=== PATIENT | male | born 1985 | race Caucasian/White ===

== ENCOUNTER 2016-10-03 08:57 | Emergency (ER) | payer MEDICAID ==
[~2016-10-03] VITALS: Ht 172.7 cm; Wt 129.3 kg
[2016-10-03 09:05] VITALS: BP 148/78
[2016-10-03] MEDS ORDERED: diphenhdrAMINE HCL 50 MG/1 ML VL IM ONE (10:00)
[2016-10-03] MEDS ORDERED: KETOROLAC TROMETH 60MG/2ML VIAL IM ONE (10:00)
== END 2016-10-03 11:07 | disposition home or self-care (01) ==
LOC: EDBD 08:57 → ER 08:57
DX: G89.29 Other chronic pain (principal); M54.5 Low back pain; M51.36 Other intervertebral disc degeneration, lumbar region; Z90.49 Acquired absence of other specified parts of digestive tract
CPT/HCPCS: 96372; 99284; J1200; J1885

== ENCOUNTER 2017-05-20 08:15 | Emergency (ER) | payer MEDICAID ==
[~2017-05-20] VITALS: Ht 172.7 cm; Wt 124.7 kg
[2017-05-20 09:13] LABS: Basophils # (auto) 0 uL; Eosinophils # (auto) 0.1 uL; Eosinophils % (auto) 0.7 % (0.0-7.0); Neutrophils # (auto) 11.8 uL; Platelet Count (auto) 334 10^3/uL (140-450); White Blood Cell 13.7 10^3/uL (4.4-10.8)
[2017-05-20 09:15] LABS: Basophils % (auto) 0.3 % (0.0-2.0); Hematocrit 52.6 % (41.0-53.0); Hemoglobin 18.1 g/dL (13.5-17.5); Lymphocytes # (auto) 1.3 uL; Lymphocytes % (auto) 9.2 % (10.0-50.0); Mean Corpuscular Hemoglobin 31.9 pg (28.0-32.0); Mean Corpuscular Hgb Conc. 34.4 g/dL (32.0-36.0); Mean Corpuscular Volume 92.6 fL (80.0-100.0); Monocytes # (auto) 0.5 uL; Monocytes % (auto) 3.9 % (0.0-12.0); Neutrophils % (auto) 85.9 % (37.0-80.0); Red Blood Cells 5.68 10^6/uL (4.5-5.90); Red Cell Distribution Width 13.4 % (11.8-14.3)
[2017-05-20 09:26] LABS: Alanine Aminotransferase 138 U/L (16-61); Albumin 4.2 g/dL (3.4-5.0); Anion Gap 10 (5-15); Aspartate Aminotransferase 56 U/L (15-37); BUN/Creatinine Ratio 15.9; Blood Urea Nitrogen 14 mg/dL (7-18); Calcium 9.5 mg/dL (8.5-10.1); Carbon Dioxide 23 mmol/L (21-32); Chloride 101 mmol/L (98-107); GFR African American 131 mL/min; GFR Non-African American 108 mL/min; Glucose 329 mg/dL (74-106); Potassium 4.2 mmol/L (3.5-5.1); Sodium 134 mmol/L (136-145)
[2017-05-20 09:31] LABS: Alkaline Phosphatase 141 U/L (45-117); Bilirubin, Total 0.6 mg/dL (0.2-1.0); Total Protein 8.1 g/dL (6.4-8.2)
[2017-05-20] MEDS ORDERED: SODIUM CHLORIDE 0.9% 1,000 ML IV ONE (10:29)
[2017-05-20] MEDS ORDERED: InsuLIN REG 1unit/0.01ml Soln (100units/ml) IV ONE (10:30)
[2017-05-20] MEDS ORDERED: PIPERACILLIN-TAZOB 3.375GM 50 ML IV ONE (10:30)
[2017-05-20 11:13] LABS: Urine Bacteria NONE SEEN /hpf (None Seen); Urine Blood Negative /uL (Negative); Urine Specific Gravity 1.046 (1.001-1.035); Urine WBC <1 /hpf (0 - 3)
[2017-05-20] MEDS ORDERED: ONDANSETRON HCL 4 MG/2 ML VIAL IV ONE (11:30)
[2017-05-20 12:37] VITALS: BP 118/49
== END 2017-05-20 13:02 | disposition home or self-care (01) ==
LOC: ER 08:15
DX: E86.0 Dehydration (principal); E11.65 Type 2 diabetes mellitus with hyperglycemia; J40 Bronchitis, not specified as acute or chronic; Z90.89 Acquired absence of other organs
CPT/HCPCS: 36415; 71046; 74176; 80053; 81001; 82962; 84484; 85025; 96365; 96375; 99285; J1815; J2405; J2543; J7030

== ENCOUNTER 2017-11-27 08:16 | Inpatient (IN) | payer MEDICAID ==
[~2017-11-27] VITALS: Ht 170.2 cm; Wt 97.4 kg
[2017-11-27 08:46] LABS: Hemoglobin 19.4 g/dL (13.5-17.5); Red Cell Distribution Width 13.5 % (11.8-14.3)
[2017-11-27 08:48] LABS: Hematocrit 55.9 % (41.0-53.0); Mean Corpuscular Hemoglobin 32.3 pg (28.0-32.0); Mean Corpuscular Hgb Conc. 34.8 g/dL (32.0-36.0); Mean Corpuscular Volume 92.9 fL (80.0-100.0); Platelet Count (auto) 365 10^3/uL (140-450); Red Blood Cells 6.02 10^6/uL (4.5-5.90); White Blood Cell 8.6 10^3/uL (4.4-10.8)
[2017-11-27 08:54] LABS: Basophils % (manual) 0 (0.0-2.0); Blast Cells 0; Eosinophils % (manual) 0 (0-7); Metamyelocytes % 0; Myelocytes % 0; Promyelocytes % 0; Reactive Lymphocytes 0
[2017-11-27 09:11] LABS: Albumin 4.1 g/dL (3.4-5.0); BUN/Creatinine Ratio 12.6; Bilirubin, Total 0.4 mg/dL (0.2-1.0); Calcium 8.9 mg/dL (8.5-10.1)
[2017-11-27 09:14] LABS: Urine Bacteria FEW /hpf (None Seen); Urine Blood TRACE /uL (Negative); Urine Specific Gravity 1.033 (1.001-1.035); Urine WBC 1 /hpf (0 - 3)
[2017-11-27 09:35] LABS: Potassium 5.2 mmol/L (3.5-5.1)
[2017-11-27 09:39] LABS: Band Neutrophils % (manual) 5; Lymphocytes % (manual) 24 (10.0-50.0)
[2017-11-27 09:40] LABS: Monocytes % (manual) 5 (0-12)
[2017-11-27] MEDS ORDERED: SODIUM CHLORIDE 0.9% 1,000 ML IVB ONE (12:40)
[2017-11-27] MEDS ORDERED: ONDANSETRON HCL 4 MG/2 ML VIAL IV ONE (12:45)
[2017-11-27 13:02] LABS: INR 0.88 (0.9-1.15); Partial Thromboplastin Time 27.8 sec (23.78-33.04); Prothrombin Time 9.5 sec (9.27-12.13)
[2017-11-27 13:17] LABS: Alcohol, Urine < 3.0 mg/dL (0-5); Amphetamine Screen, Urine NEGATIVE (NEGATIVE); Barbiturate Scree,Urine NEGATIVE (NEGATIVE); Benzodiazephine Screen, Urine NEGATIVE (NEGATIVE); Cannabinoid Screen, Urine NEGATIVE (NEGATIVE); Cocaine Screen, Urine NEGATIVE (NEGATIVE); Opiate Scree,Urine NEGATIVE (NEGATIVE); Phencyclidine Screen, Urine NEGATIVE (NEGATIVE)
[2017-11-27] MEDS ORDERED: DEXTROSE (50%) 50ML SYRG IV PRN (13:45)
[2017-11-27] MEDS ORDERED: PROMETHAZINE HCL 25 MG/ML 1ML IV PRN (13:45)
[2017-11-27] MEDS ORDERED: cefTRIAXone 1GM/10ml IVPUSH 10 ML IV ONE (13:45)
[2017-11-27] MEDS ORDERED: ACETAMINOPHEN 500 MG TAB PO PRN (13:45)
[2017-11-27] MEDS ORDERED: HYDROcodone-ACET 5/325MG TAB PO PRN (13:45)
[2017-11-27] MEDS ORDERED: TEMAZEPAM 15 MG CAP PO PRN (13:45)
[2017-11-27] MEDS ORDERED: NITROGLYCERIN 0.4 MG SL TAB SL PRN (13:45)
[2017-11-27] MEDS ORDERED: MORPHINE SULF INJ 2 MG/ML SYRINGE 1ML IV PRN ×2 (13:45)
[2017-11-27] MEDS ORDERED: LORazepam 0.5 MG TAB PO PRN (13:45)
[2017-11-27] MEDS: SODIUM CHLORIDE 0.9% 1,000 ML IV SCH ×2 (14:34→22:27)
[2017-11-27] MEDS: metroNIDAZOLE 500MG/100ML 100 ML IV SCH ×2 (14:34→20:35)
[2017-11-27] MEDS: FAMOTIDINE (10MG/ML) 2ML VL IV SCH (14:38)
[2017-11-27] MEDS: ACCU-CHEK COMFORT CURVE STRIP VI SCH ×2 (15:27→20:00)
[2017-11-27] MEDS: InsuLIN REG 1unit/0.01ml Soln (100units/ml) SC SCH ×2 (15:27→20:39)
[2017-11-27 22:00] VITALS: BP 130/78
[2017-11-28] MEDS: ACCU-CHEK COMFORT CURVE STRIP VI SCH ×6 (00:02→20:13)
[2017-11-28] MEDS: InsuLIN REG 1unit/0.01ml Soln (100units/ml) SC SCH ×6 (00:07→20:22)
[2017-11-28] MEDS: FAMOTIDINE (10MG/ML) 2ML VL IV SCH ×2 (03:41→13:37)
[2017-11-28] MEDS: metroNIDAZOLE 500MG/100ML 100 ML IV SCH ×4 (03:41→19:56)
[2017-11-28] MEDS: SODIUM CHLORIDE 0.9% 1,000 ML IV SCH ×3 (05:08→22:25)
[2017-11-28 05:18] VITALS: BP 123/68
[2017-11-28 06:47] LABS: Basophils # (auto) 0 uL; Basophils % (auto) 0.6 % (0.0-2.0); Eosinophils # (auto) 0.1 uL; Eosinophils % (auto) 1.7 % (0.0-7.0); Hematocrit 48.3 % (41.0-53.0); Lymphocytes # (auto) 1.3 uL; Lymphocytes % (auto) 21.7 % (10.0-50.0); Mean Corpuscular Hemoglobin 32.5 pg (28.0-32.0); Mean Corpuscular Hgb Conc. 35.1 g/dL (32.0-36.0); Mean Corpuscular Volume 92.6 fL (80.0-100.0); Monocytes # (auto) 0.7 uL; Monocytes % (auto) 12.1 % (0.0-12.0); Neutrophils # (auto) 3.7 uL; Neutrophils % (auto) 63.9 % (37.0-80.0); Nucleated Red Blood Cells % 0.1 %; Platelet Count (auto) 272 10^3/uL (140-450); Red Blood Cells 5.22 10^6/uL (4.5-5.90); Red Cell Distribution Width 13.4 % (11.8-14.3); White Blood Cell 5.8 10^3/uL (4.4-10.8)
[2017-11-28 06:56] LABS: Albumin 3.3 g/dL (3.4-5.0); Calcium 8.4 mg/dL (8.5-10.1); Potassium 3.9 mmol/L (3.5-5.1)
[2017-11-28 06:58] LABS: BUN/Creatinine Ratio 12.2
[2017-11-28 07:01] LABS: Bilirubin, Total 0.5 mg/dL (0.2-1.0)
[2017-11-28 07:07] LABS: Cholesterol 245 mg/dL (< 200); HDL Cholesterol 25 mg/dL (40-59); LDL Cholesterol 157 mg/dL (< 100); Triglycerides 343 mg/dL (< 150)
[2017-11-28 09:00] VITALS: BP 120/73
[2017-11-28] MEDS: cefTRIAXone 1GM/10ml IVPUSH 10 ML IV SCH (09:00)
[2017-11-28 13:00] VITALS: BP 125/83
[2017-11-28 17:00] VITALS: BP 140/77
[2017-11-28 19:04] LABS: BUN/Creatinine Ratio 10.7; Calcium 8.2 mg/dL (8.5-10.1); Potassium 3.8 mmol/L (3.5-5.1)
[2017-11-28 22:00] VITALS: BP 127/89
[2017-11-28] MEDS ORDERED: INSULIN LANTUS (GLARGINE) 1 /0.01ml (100units/ml) SC SCH ×2 (22:00)
[2017-11-29] MEDS: ACCU-CHEK COMFORT CURVE STRIP VI SCH ×4 (00:29→12:00)
[2017-11-29] MEDS: InsuLIN REG 1unit/0.01ml Soln (100units/ml) SC SCH ×4 (00:33→12:00)
[2017-11-29] MEDS: FAMOTIDINE (10MG/ML) 2ML VL IV SCH ×2 (00:36→14:15)
[2017-11-29] MEDS: metroNIDAZOLE 500MG/100ML 100 ML IV SCH ×3 (01:57→14:15)
[2017-11-29] MEDS: SODIUM CHLORIDE 0.9% 1,000 ML IV SCH ×2 (04:15→12:27)
[2017-11-29 05:00] VITALS: BP 139/81
[2017-11-29 06:32] LABS: Calcium 8.2 mg/dL (8.5-10.1); Potassium 3.7 mmol/L (3.5-5.1)
[2017-11-29 06:35] LABS: Albumin 3.1 g/dL (3.4-5.0); BUN/Creatinine Ratio 9.2
[2017-11-29 06:38] LABS: Bilirubin, Total 0.5 mg/dL (0.2-1.0); Total Protein 6.6 g/dL (6.4-8.2)
[2017-11-29] MEDS: cefTRIAXone 1GM/10ml IVPUSH 10 ML IV SCH (09:00)
[2017-11-29 09:31] VITALS: BP 146/95
[2017-11-29 12:30] VITALS: BP 156/92
[2017-11-29] MEDS ORDERED: ASPI81CH43 PO (14:28)
[2017-11-29] MEDS ORDERED: ATOR20TA50 PO (14:28)
[2017-11-29] MEDS ORDERED: LOSARTAN POTASSIUM 25 MG TAB PO ONE (14:30)
== END 2017-11-29 16:00 | disposition home or self-care (01) | DRG 420 ==
LOC: ER 08:16 → TELE 08:17 → TELE-WESTW 15:52
PROVIDERS: ADMIT Internal Medicine; ATTEND Internal Medicine
DX: E11.10 Type 2 diabetes mellitus with ketoacidosis without coma (principal); E66.01 Morbid (severe) obesity due to excess calories; E87.5 Hyperkalemia; D75.1 Secondary polycythemia; K76.0 Fatty (change of) liver, not elsewhere classified; F20.9 Schizophrenia, unspecified; K52.9 Noninfective gastroenteritis and colitis, unspecified; E86.0 Dehydration; E87.1 Hypo-osmolality and hyponatremia; E78.1 Pure hyperglyceridemia; F31.9 Bipolar disorder, unspecified; E78.5 Hyperlipidemia, unspecified; F41.9 Anxiety disorder, unspecified; I10 Essential (primary) hypertension; Z82.49 Family history of ischemic heart disease and other diseases of the circulatory system; Z68.33 Body mass index [BMI] 33.0-33.9, adult; Z90.49 Acquired absence of other specified parts of digestive tract
CPT/HCPCS: 36415; 71045; 74176; 76705; 80048; 80053; 80061; 80307; 81001; 82150; 82962; 83036; 83690; 83735; 85007; 85025; 85027; 85610; 85652; 85730; 86141; 87086; 87493; 93005; 94761; 96361; 96374; 96375; J0696; J1815; J2405; J3490

== ENCOUNTER 2021-10-31 06:39 | Emergency (ER) | payer MEDICAID ==
[~2021-10-31] VITALS: Ht 170.2 cm; Wt 126.3 kg
[~2021-10-31 06:39] MED LIST: ASPI81CH43 PO; ATOR20TA50 PO
[2021-10-31 07:15] VITALS: BP 148/82
[2021-10-31 07:55] LABS: Basophils # (auto) 0 10 ^3/uL (0-0.2); Basophils % (auto) 0.4 % (0.0-2.0); Eosinophils # (auto) 0 10 ^3/uL (0-0.8); Eosinophils % (auto) 0.3 % (0.0-7.0); Hematocrit 47.6 % (41.0-53.0); Hemoglobin 15.8 g/dL (13.5-17.5); Lymphocytes # (auto) 0.8 10 ^3/uL (0.4-5.4); Lymphocytes % (auto) 15.7 % (10.0-50.0); Mean Corpuscular Hemoglobin 29.8 pg (28.0-32.0); Mean Corpuscular Hgb Conc. 33.1 g/dL (32.0-36.0); Mean Corpuscular Volume 90.1 fL (80.0-100.0); Monocytes # (auto) 0.4 10 ^3/uL (0-1.3); Monocytes % (auto) 7.4 % (0.0-12.0); Neutrophils # (auto) 3.9 10 ^3/uL (1.6-8.6); Neutrophils % (auto) 76.2 % (37.0-80.0); Nucleated Red Blood Cells % 0.1 %; Red Blood Cells 5.28 10^6/uL (4.5-5.90); White Blood Cell 5.1 10^3/uL (4.4-10.8)
[2021-10-31 08:10] LABS: Albumin 3.6 g/dL (3.4-5.0); BUN/Creatinine Ratio 14.5; Calcium 8.6 mg/dL (8.5-10.1); Potassium 4.5 mmol/L (3.5-5.1)
[2021-10-31 08:19] LABS: Bilirubin, Total 0.8 mg/dL (0.2-1.0); Total Protein 7.3 g/dL (6.4-8.2)
== END 2021-10-31 10:25 | disposition home or self-care (01) ==
LOC: EDBD 06:39 → ER 06:39
DX: R10.11 Right upper quadrant pain (principal); R74.8 Abnormal levels of other serum enzymes; I10 Essential (primary) hypertension; E11.9 Type 2 diabetes mellitus without complications; Z90.49 Acquired absence of other specified parts of digestive tract; Z79.82 Long term (current) use of aspirin; Z79.899 Other long term (current) drug therapy
CPT/HCPCS: 36415; 71045; 74176; 80053; 85025

== ENCOUNTER 2021-11-02 13:12 | Emergency (ER) | payer MEDICAID ==
[~2021-11-02] VITALS: Ht 170.2 cm; Wt 55.0 kg
[2021-11-02 14:42] LABS: Basophils # (auto) 0 10 ^3/uL (0-0.2); Eosinophils # (auto) 0 10 ^3/uL (0-0.8); Eosinophils % (auto) 0.2 % (0.0-7.0); Neutrophils # (auto) 8.2 10 ^3/uL (1.6-8.6); Nucleated Red Blood Cells % 0.1 %
[2021-11-02 14:45] LABS: Basophils % (auto) 0.3 % (0.0-2.0); Hematocrit 53.7 % (41.0-53.0); Hemoglobin 17.6 g/dL (13.5-17.5); Lymphocytes # (auto) 1.4 10 ^3/uL (0.4-5.4); Lymphocytes % (auto) 13.2 % (10.0-50.0); Mean Corpuscular Hemoglobin 29.8 pg (28.0-32.0); Mean Corpuscular Hgb Conc. 32.7 g/dL (32.0-36.0); Mean Corpuscular Volume 91.1 fL (80.0-100.0); Monocytes # (auto) 1.2 10 ^3/uL (0-1.3); Monocytes % (auto) 11.4 % (0.0-12.0); Neutrophils % (auto) 74.9 % (37.0-80.0); Red Blood Cells 5.89 10^6/uL (4.5-5.90); Red Cell Distribution Width 13.8 % (11.8-14.3)
[2021-11-02] MEDS ORDERED: SODIUM CHLORIDE 0.9% 1,000 ML IV ONE (14:45)
[2021-11-02] MEDS ORDERED: cefTRIAXone 1GM/50ML D5W 50 ML IV ONE (14:45)
[2021-11-02] MEDS ORDERED: metroNIDAZOLE 500MG/100ML 100 ML IV ONE (14:45)
[2021-11-02] MEDS ORDERED: SODIUM CHLORIDE 0.9% 1,000 ML IVB ONE (14:45)
[2021-11-02 15:00] LABS: Albumin 3.6 g/dL (3.4-5.0); Calcium 9.4 mg/dL (8.5-10.1); Potassium 4.3 mmol/L (3.5-5.1)
[2021-11-02 15:10] LABS: BUN/Creatinine Ratio 9.8; Bilirubin, Total 2.6 mg/dL (0.2-1.0); Total Protein 8.5 g/dL (6.4-8.2)
[2021-11-02 19:03] VITALS: BP 128/82
== END 2021-11-02 19:13 | disposition home or self-care (01) ==
LOC: EDBD 13:12 → ER 13:12
DX: E11.65 Type 2 diabetes mellitus with hyperglycemia (principal); R74.8 Abnormal levels of other serum enzymes; R10.9 Unspecified abdominal pain; I10 Essential (primary) hypertension
CPT/HCPCS: 36415; 76705; 80053; 83605; 83690; 83880; 85025; 87040; 96365; 96366; 96367; 99284; J0696; J3490; J7030

== ENCOUNTER 2023-02-25 10:38 | Emergency (ER) | payer MEDICAID ==
[~2023-02-25] VITALS: Ht 170.2 cm; Wt 124.2 kg
[2023-02-25] MEDS ORDERED: InsuLIN REG 1unit/0.01ml Soln (100units/ml) IV ONE (11:00)
[2023-02-25] MEDS ORDERED: SODIUM CHLORIDE 0.9% 1,000 ML IV ONE (11:00)
[2023-02-25 11:12] LABS: Basophils # (auto) 0.1 10 ^3/uL (0-0.2); Basophils % (auto) 0.8 % (0.0-2.0); Eosinophils # (auto) 0.1 10 ^3/uL (0-0.8); Hematocrit 46.1 % (41.0-53.0); Hemoglobin 15.5 g/dL (13.5-17.5); Lymphocytes # (auto) 2.3 10 ^3/uL (0.4-5.4); Lymphocytes % (auto) 32.3 % (10.0-50.0); Mean Corpuscular Hemoglobin 31.4 pg (28.0-32.0); Mean Corpuscular Hgb Conc. 33.7 g/dL (32.0-36.0); Mean Corpuscular Volume 93.1 fL (80.0-100.0); Monocytes # (auto) 0.5 10 ^3/uL (0-1.3); Monocytes % (auto) 6.5 % (0.0-12.0); Neutrophils # (auto) 4.2 10 ^3/uL (1.6-8.6); Neutrophils % (auto) 59.4 % (37.0-80.0); Nucleated Red Blood Cells % 0.2 %; Red Blood Cells 4.95 10^6/uL (4.5-5.90); Red Cell Distribution Width 13.5 % (11.8-14.3)
[2023-02-25 11:22] LABS: Alanine Aminotransferase 61 U/L (7-40); Albumin 2.8 g/dL (3.2-4.8); Alkaline Phosphatase 60 U/L (46-116); Anion Gap 11 (5-15); Aspartate Aminotransferase 19 U/L (13-40); BUN/Creatinine Ratio 11.8 (10.0-20.0); Blood Urea Nitrogen 6 mg/dL (9-23); Calcium 6.3 mg/dL (8.5-10.1); Carbon Dioxide 21 mmol/L (20-30); Chloride 100 mmol/L (98-107); Glucose 338 mg/dL (74-106); Potassium 4.5 mmol/L (3.5-5.1); Sodium 132 mmol/L (136-145)
[2023-02-25 11:23] LABS: Bilirubin, Total 0.2 mg/dL (0.2-1.0); Total Protein 4.4 g/dL (5.7-8.2)
[2023-02-25 11:48] LABS: Urine Bacteria NONE SEEN /hpf (None Seen); Urine Blood Negative /uL (Negative); Urine Clarity Clear (Clear); Urine Color Colorless (Yellow); Urine Protein, UAD Negative (Negative); Urine Specific Gravity 1.026 (1.001-1.035); Urine Urobilinogen Normal (Negative); Urine WBC <1 /hpf (0 - 3)
[2023-02-25 13:20] VITALS: BP 142/81; PULSE 103; RESP 19; TEMP 98.6; O2SAT 95
== END 2023-02-25 15:04 | disposition home or self-care (01) ==
LOC: ER 10:38
DX: E11.65 Type 2 diabetes mellitus with hyperglycemia (principal); I10 Essential (primary) hypertension; E78.5 Hyperlipidemia, unspecified; F17.210 Nicotine dependence, cigarettes, uncomplicated; Z90.49 Acquired absence of other specified parts of digestive tract; Z79.82 Long term (current) use of aspirin; Z79.899 Other long term (current) drug therapy
CPT/HCPCS: 36415; 80053; 81001; 82962; 85025; 96361; 96374; 99283; J1815; J7030

== ENCOUNTER 2023-08-29 08:01 | Inpatient (IN) | payer MEDICAID ==
[~2023-08-29] VITALS: Ht 170.2 cm; Wt 119.4 kg
[2023-08-29 08:38] LABS: Basophils # (auto) 0 10 ^3/uL (0-0.2); Basophils % (auto) 0.1 % (0.0-2.0); Eosinophils # (auto) 0.1 10 ^3/uL (0-0.8); Eosinophils % (auto) 0.6 % (0.0-7.0); Hematocrit 50.9 % (41.0-53.0); Hemoglobin 17.1 g/dL (13.5-17.5); Lymphocytes # (auto) 0.7 10 ^3/uL (0.4-5.4); Lymphocytes % (auto) 5.9 % (10.0-50.0); Mean Corpuscular Hemoglobin 31.5 pg (28.0-32.0); Mean Corpuscular Hgb Conc. 33.6 g/dL (32.0-36.0); Mean Corpuscular Volume 93.8 fL (80.0-100.0); Monocytes # (auto) 0.8 10 ^3/uL (0-1.3); Monocytes % (auto) 7.3 % (0.0-12.0); Neutrophils # (auto) 9.6 10 ^3/uL (1.6-8.6); Neutrophils % (auto) 86.1 % (37.0-80.0); Red Blood Cells 5.42 10^6/uL (4.5-5.90); Red Cell Distribution Width 13.6 % (11.8-14.3); White Blood Cell 11.1 10^3/uL (4.4-10.8)
[2023-08-29 08:54] LABS: Urine Bacteria None Seen /hpf (None Seen)
[2023-08-29 09:00] LABS: Alanine Aminotransferase 97 U/L (7-40); Albumin 4.4 g/dL (3.2-4.8); Alkaline Phosphatase 93 U/L (46-116); Anion Gap 5 (5-15); Aspartate Aminotransferase 32 U/L (13-40); BUN/Creatinine Ratio 8.3 (10.0-20.0); Bilirubin, Total 0.7 mg/dL (0.2-1.0); Blood Urea Nitrogen 7 mg/dL (9-23); Calcium 9.8 mg/dL (8.7-10.4); Carbon Dioxide 25 mmol/L (20-30); Chloride 105 mmol/L (98-107); Glucose 332 mg/dL (74-106); Lipase 31 U/L (12-53); Potassium 4.6 mmol/L (3.5-5.1); Sodium 135 mmol/L (136-145); Total Protein 7.1 g/dL (5.7-8.2)
[2023-08-29] MEDS: SODIUM CHLORIDE 0.9% 1,000 ML IV ONE ×2 (09:10→09:40)
[2023-08-29 09:19] LABS: Urine Blood Negative /uL (Negative); Urine Clarity Clear (Clear); Urine Color Light-Yellow (Yellow); Urine Hyaline Cast MANY /lpf (0 - 2); Urine Protein, UAD Negative (Negative); Urine Specific Gravity 1.047 (1.001-1.035); Urine Urobilinogen Normal (Negative); Urine WBC 1 /hpf (0 - 3)
[2023-08-29] MEDS: InsuLIN REG 1unit/0.01ml Soln (100units/ml) IV ONE (10:10)
[2023-08-29] MEDS: LACTATED RINGER'S 1,000 ML IV ONE (11:00)
[2023-08-29] MEDS ORDERED: metroNIDAZOLE 500MG/100ML 100 ML IV SCH ×2 (11:00→11:15)
[2023-08-29] MEDS ORDERED: DOCUSATE SOD 100 MG CAP PO PRN (11:00)
[2023-08-29] MEDS ORDERED: ONDANSETRON HCL 4 MG/2 ML VIAL IV PRN (11:00)
[2023-08-29] MEDS ORDERED: HYDROmorphone HCL 2 MG/ML VL/or syr IV PRN (11:00)
[2023-08-29] MEDS ORDERED: ACETAMINOPHEN 325 MG TAB PO PRN (11:00)
[2023-08-29] MEDS ORDERED: DEXTROSE (50%) 50ML SYRG IV PRN (11:00)
[2023-08-29 11:30] VITALS: PULSE 81; RESP 16; O2SAT 92
[2023-08-29] MEDS: cefTRIAXone 1GM/50ML D5W 50 ML IV SCH (11:31)
[2023-08-29] MEDS: ACCU-CHEK COMFORT CURVE STRIP VI SCH (13:30)
[2023-08-29] MEDS: metroNIDAZOLE 500 MG TAB PO SCH (14:00)
[2023-08-29] MEDS: InsuLIN REG 1unit/0.01ml Soln (100units/ml) SC SCH (14:00)
[2023-08-29] MEDS: SODIUM CHLOR 0.9% PF (SALINE LOCK) 10ML VIAL/SYR IV SCH (14:06)
[2023-08-29 14:38] VITALS: BP 108/68; PULSE 106; RESP 18; TEMP 98; O2SAT 98
[2023-08-29 14:39] VITALS: BP 108/68; PULSE 106; RESP 18; TEMP 98; O2SAT 98
[2023-08-29 17:00] VITALS: BP 110/63; PULSE 116; RESP 18; TEMP 98.5; O2SAT 95
[2023-08-29 20:00] VITALS: PULSE 107; RESP 19; O2SAT 94
[2023-08-29 21:32] VITALS: BP 108/61; PULSE 101; RESP 19; TEMP 98.1; O2SAT 94
[2023-08-30] VITALS (7 sets, daily range): BP systolic 114–144; BP diastolic 61–87; PULSE 75–98; RESP 17–20; TEMP 97.5–98.3; O2SAT 92–96
[2023-08-30] MEDS: ATORVASTATIN 20 MG TAB PO SCH (09:43)
[2023-08-30] MEDS: ASPirin 81 mg TAB PO SCH (09:43)
[2023-08-31 01:00] VITALS: BP 114/84; PULSE 98; RESP 20; TEMP 98; O2SAT 94
[2023-08-31 05:00] VITALS: BP 153/92; PULSE 93; RESP 20; TEMP 98; O2SAT 97
[2023-08-31 09:00] VITALS: BP 111/68; PULSE 87; RESP 20; TEMP 98.3; O2SAT 99
[2023-08-31 13:26] VITALS: BP 147/78; PULSE 90; RESP 21; TEMP 98.2; O2SAT 97
[2023-08-31 20:00] VITALS: PULSE 81; RESP 14; O2SAT 96
[2023-08-31 21:00] VITALS: BP 126/76; PULSE 81; RESP 14; TEMP 98.7; O2SAT 96
[2023-09-01] VITALS (7 sets, daily range): BP systolic 82–153; BP diastolic 78–89; PULSE 77–94; RESP 16–20; TEMP 36.4; O2SAT 94–98
[2023-09-01 07:07] LABS: Chloride 107 mmol/L (98-107); Potassium 3.9 mmol/L (3.5-5.1); Sodium 138 mmol/L (136-145)
[2023-09-01 07:08] LABS: Anion Gap 6 (5-15); Carbon Dioxide 25 mmol/L (20-30)
[2023-09-01 07:10] LABS: Hematocrit 43.2 % (41.0-53.0); Hemoglobin 14.9 g/dL (13.5-17.5); Mean Corpuscular Hemoglobin 32.2 pg (28.0-32.0); Mean Corpuscular Hgb Conc. 34.5 g/dL (32.0-36.0); Mean Corpuscular Volume 93.2 fL (80.0-100.0); Red Blood Cells 4.64 10^6/uL (4.5-5.90); Red Cell Distribution Width 13.1 % (11.8-14.3); White Blood Cell 4.5 10^3/uL (4.4-10.8)
[2023-09-01 07:13] LABS: BUN/Creatinine Ratio 6.7 (10.0-20.0); Blood Urea Nitrogen 5 mg/dL (9-23)
[2023-09-01 07:14] LABS: Basophils % (manual) 0 (0.0-2.0); Blast Cells 0; Metamyelocytes % 0; Myelocytes % 0; Promyelocytes % 0; Reactive Lymphocytes 0
[2023-09-01 07:23] LABS: Glucose 213 mg/dL (74-106)
[2023-09-01 08:20] LABS: Band Neutrophils % (manual) 1; Eosinophils % (manual) 2 (0-7); Lymphocytes % (manual) 35 (10.0-50.0); Monocytes % (manual) 14 (0-12)
[2023-09-01 08:21] LABS: Platelet Estimate Adequate; RBC Morphology Normal
[2023-09-01] MEDS ORDERED: LEVO500T91 PO (10:20)
[2023-09-01] MEDS ORDERED: METR-344 PO (10:20)
[2023-09-01] MEDS: HYDROcodone-ACET 5/325MG TAB PO PRN (14:43)
== END 2023-09-01 17:38 | disposition home or self-care (01) | DRG 249 ==
LOC: ER 08:01 → EDUNIT# 08:01 → EDBD 08:01 → ER 10:59 → OVERFLOW 10:59 → EAST 14:26
PROVIDERS: ADMIT Internal Medicine; ATTEND Family Medicine
DX: K52.9 Noninfective gastroenteritis and colitis, unspecified (principal); K76.0 Fatty (change of) liver, not elsewhere classified; E11.65 Type 2 diabetes mellitus with hyperglycemia; I10 Essential (primary) hypertension; F17.210 Nicotine dependence, cigarettes, uncomplicated; Z82.49 Family history of ischemic heart disease and other diseases of the circulatory system; Z79.4 Long term (current) use of insulin; Z79.899 Other long term (current) drug therapy
CPT/HCPCS: 36415; 74176; 80048; 80053; 81001; 82962; 83690; 85007; 85025; 85027; 85048; 87045; 87427; 87493; 96365; G0378; J1815

== ENCOUNTER 2023-11-15 16:02 | Emergency (ER) | payer MEDICAID ==
[~2023-11-15] VITALS: Ht 172.7 cm; Wt 120.0 kg
[~2023-11-15 16:02] MED LIST changes: +LEVO500T91 PO; +METR-344 PO
[2023-11-15 17:16] LABS: Basophils # (auto) 0 10 ^3/uL (0-0.2); Basophils % (auto) 0.6 % (0.0-2.0); Eosinophils # (auto) 0.1 10 ^3/uL (0-0.8); Hematocrit 47.5 % (41.0-53.0); Hemoglobin 16.4 g/dL (13.5-17.5); Lymphocytes % (auto) 25.3 % (10.0-50.0); Mean Corpuscular Hemoglobin 32.1 pg (28.0-32.0); Mean Corpuscular Hgb Conc. 34.6 g/dL (32.0-36.0); Mean Corpuscular Volume 92.8 fL (80.0-100.0); Monocytes # (auto) 0.8 10 ^3/uL (0-1.3); Monocytes % (auto) 9.7 % (0.0-12.0); Neutrophils % (auto) 63.4 % (37.0-80.0); Red Blood Cells 5.12 10^6/uL (4.5-5.90); Red Cell Distribution Width 13.3 % (11.8-14.3); White Blood Cell 7.9 10^3/uL (4.4-10.8)
[2023-11-15] MEDS: InsuLIN REG 1unit/0.01ml Soln (100units/ml) IV ONE (17:29)
[2023-11-15 17:30] LABS: Chloride 101 mmol/L (98-107); Potassium 4.2 mmol/L (3.5-5.1); Sodium 134 mmol/L (136-145)
[2023-11-15] MEDS: SODIUM CHLORIDE 0.9% 1,000 ML IV ONE ×2 (17:30→18:06)
[2023-11-15 17:31] LABS: Anion Gap 7 (5-15); Calcium 9.5 mg/dL (8.7-10.4); Carbon Dioxide 26 mmol/L (20-30)
[2023-11-15 17:36] LABS: BUN/Creatinine Ratio 16.9 (10.0-20.0); Blood Urea Nitrogen 15 mg/dL (9-23); Glucose 345 mg/dL (74-106)
[2023-11-15 19:28] VITALS: BP 148/84; PULSE 99; RESP 19; TEMP 98.1; O2SAT 96
== END 2023-11-15 19:29 | disposition home or self-care (01) ==
LOC: ER 16:02 → EDBD 16:02 → ER 19:29
DX: E11.65 Type 2 diabetes mellitus with hyperglycemia (principal); I10 Essential (primary) hypertension; E78.5 Hyperlipidemia, unspecified; F17.210 Nicotine dependence, cigarettes, uncomplicated; F15.90 Other stimulant use, unspecified, uncomplicated; Z98.890 Other specified postprocedural states; Z79.899 Other long term (current) drug therapy
CPT/HCPCS: 36415; 80048; 85025; 96361; 96374; 99283; J1815; J7030

== ENCOUNTER 2024-04-28 17:02 | Inpatient (IN) | payer MEDICAID ==
[~2024-04-28] VITALS: Ht 170.2 cm; Wt 121.4 kg
[2024-04-28] MEDS ORDERED: DEXTROSE (50%) 50ML SYRG IV PRN ×2 (17:15→18:15)
[2024-04-28] MEDS: ACCU-CHEK COMFORT CURVE STRIP VI SCH ×2 (18:00→19:20)
--- NOTE | 2024-04-28 18:04 | ED.PDOC ---
History of Present Illness HPI Comments Anthony Nguyễn is a 38-year-old male patient who presents to the ED with complaint of generalized weakness, diarrhea, polyuria, confusion and dizziness which started today, associated with hyperglycemia (350). Patient says he is noncompliant with medication, he just to easily whenever patient feels symptomatic, he should be receiving insulin but has not been taking insulin for approximately one year. He also reports recent use of methamphetamine. Denies fever, chills, palpitation, syncope, chest pain, dyspnea, nausea, vomiting, bleeding, sick contacts, recent travel and other motor or sensory deficits. Past medical history: Hypertension, diabetes, noncompliance Surgical history: Appendectomy 20 years ago Family history: Father has hypertension Social history: Lives in feeling with mother. He is an active smoker (only smokes six cigarettes per day for the past year) he smokes marijuana occasionally. Ethanol abuse (patient did not quantify, but he does drink hard liquor, he binge drinks not every day of the week). Current methamphetamine abuse. He tried stopping polysubstance abuse multiple occasions, but always has recurrence. Allergies: Enema dandruff Home medication: Metformin occasionally, insulin (he stopped taking for approximately one year), losartan Chief Complaint: General Weakness Time Seen by MD: 17:06 Primary Care Provider: Rodger Allergies: Coded Allergies: No Known Drug Allergy (Unverified Allergy, Unknown, 08/29/23) Home Meds Active Scripts Metronidazole (Flagyl) 500 Mg Tab, 1 TAB PO TID, #30 TAB Prov:MARI SOLANO MD 09/01/23 Levofloxacin Hemihydrate (LEVAQUIN 500 MG) 500 Mg Tab, 1 TAB PO DAILY, #7 TAB Prov:MARI SOLANO MD 09/01/23 Aspirin (Asa) 81 Mg Ch, 81 MG PO DAILY, #100 Prov:KAIN CHRISTIANSON MD 11/29/17 Atorvastatin Calcium (ATORVASTATIN CALCIUM) 20 Mg Tab, 1 TAB PO DAILY, #90 TAB 1 Refill Prov:KAIN CHRISTIANSON MD 11/29/17 Mode of Arrival: EMS Past Medical History PAST MEDICAL HISTORY: DM, High Lipids, HTN, Thyroid Surgical History: Appendectomy Family History Family History: Family hx of HTN Social History Smoker: Cigarettes Alcohol: Occasionally Drugs: Marijuana, Methamphetamine Lives In: Home Physical Exam General Appearance: No Apparent Distress, Normal HEENT: Normal ENT Inspection, Pharynx Normal, TMs Normal Neck: Full Range of Motion, Non-Tender, Normal, Normal Inspection Respiratory: Chest Non-Tender, Lungs Clear, No Accessory Muscle Use, No Respiratory Distress, Normal Breath Sounds Cardiovascular: No Edema, No JVD, No Murmur, No Gallop, Normal Peripheral Pulses, Regular Rate/Rhythm Breast Exam: Deferred Gastrointestinal: No Organomegaly, Non Tender, No Pulsatile Mass, Normal Bowel Sounds, Soft Genitalia: Deferred Pelvic: Deferred Rectal: Deferred Extremities: No calf tenderness, Normal capillary refill, Normal inspection, Normal range of motion, Non-tender, No pedal edema Neurologic: Alert, nurse orthopedic II-XII nml as Tested, No Motor Deficits, Normal Affect, Normal Mood, No Sensory Deficits Cerebellar Function: Normal Reflexes: Normal Skin: Dry, Normal Color, Warm Lymphatic: No Adenopathy Was a procedure done? Was a procedure done?: No Differential Dx Considerations may include: Simple hyperglycemia, DKA, polysubstance abuse, CVA, infection X-Ray, Labs, Meds, VS Vital Signs Date Time Temp Pulse Resp B/P (MAP) Pulse Ox O2 Delivery O2 Flow Rate FiO2 04/28/24 17:54 117 17 95 Room Air 04/28/24 17:54 97.6 117 17 143/92 (109) 95 97.6 04/28/24 17:31 97.7 115 14 122/78 (93) 94 Lab Test 04/28/24 17:59 04/28/24 17:53 Range/Units White Blood Count 11.3 H 4.4-10.8 10^3/uL Red Blood Count 5.11 4.5-5.90 10^6/uL Hemoglobin 16.3 13.5-17.5 g/dL Hematocrit 46.9 41.0-53.0 % Mean Corpuscular Volume 91.9 80.0-100.0 fL Mean Corpuscular Hemoglobin 31.9 28.0-32.0 pg Mean Corpuscular Hemoglobin Concent 34.6 32.0-36.0 g/dL Red Cell Distribution Width 12.9 11.8-14.3 % Platelet Count 288 140-450 10^3/uL Mean Platelet Volume 7.9 6.9-10.8 fL Neutrophils (%) (Auto) 59.7 37.0-80.0 % Lymphocytes (%) (Auto) 31.1 10.0-50.0 % Monocytes (%) (Auto) 6.6 0.0-12.0 % Eosinophils (%) (Auto) 1.6 0.0-7.0 % Basophils (%) (Auto) 1.0 0.0-2.0 % Neutrophils # (Auto) 6.8 1.6-8.6 10 ^3/uL Lymphocytes # (Auto) 3.5 0.4-5.4 10 ^3/uL Monocytes # (Auto) 0.7 0-1.3 10 ^3/uL Eosinophils # (Auto) 0.2 0-0.8 10 ^3/uL Basophils # (Auto) 0.1 0-0.2 10 ^3/uL Nucleated Red Blood Cells 0.0 % Prothrombin Time 9.7 9.3-11.8 sec Prothrombin Time INR 0.91 0.9-1.15 Activated Partial Thromboplast Time 25.0 24.5-34.5 SEC Sodium Level 133 L 136-145 mmol/L Potassium Level 4.6 3.5-5.1 mmol/L Chloride Level 103 98-107 mmol/L Carbon Dioxide Level 22 20-31 mmol/L Anion Gap 8 5-15 Blood Urea Nitrogen 13 9-23 mg/dL Creatinine 0.81 0.700-1.30 mg/dL Glomerular Filtration Rate Calc 116 >90 mL/min BUN/Creatinine Ratio 16.0 10.0-20.0 Serum Glucose 387 H 74-106 mg/dL Lactic Acid Level 2.1 *H 0.4-2.0 mmol/L Calcium Level 9.5 8.7-10.4 mg/dL Phosphorus Level 4.0 2.4-5.1 mg/dL Magnesium Level 1.7 1.6-2.6 mg/dL Total Bilirubin < 0.2 L 0.2-1.0 mg/dL Aspartate Amino Transferase (AST) 27 13-40 U/L Alanine Aminotransferase (ALT) 67 H 7-40 U/L Alkaline Phosphatase 95 46-116 U/L Ammonia 26 11-32 umol/L Total Protein 6.6 5.7-8.2 g/dL Albumin 4.6 3.2-4.8 g/dL Thyroid Stimulating Hormone (TSH) 2.70 0.55-4.78 uIU/mL POC Glucose 361 H 70-106 mg/dl Current Medications Medications (Trade) Dose Ordered Sig/Abhishek Route Start Time Stop Time Status Last Admin Sodium Chloride 1,000 ml @ 1,000 mls/hr Q1H ONCE IV 04/28/24 18:00 04/28/24 18:59 DC 04/28/24 18:13 Diagnostic Test (Pha) (Accu-Chek Comfort Curve T) 1 strip IQ4HR 04/28/24 18:08 04/28/24 19:20 Insulin Human Regular (InsuLIN R) IQ4HR SC 04/28/24 18:08 04/28/24 19:25 X-Ray, Labs, Meds, VS Comment Reviewed vital signs, laboratory findings (11.3 leukocytosis, lactic acid 2.1 and glycemia 387), chest x-ray within normal limits (pending report) in urine analysis and urine drug screen also pending. Time of 1ST Reevaluation: 19:30 Reevaluation 1ST: Unchanged Patient Education/Counseling: Diagnosis, Treatment, Prognosis Family Education/Counseling: Diagnosis, Treatment, Prognosis Departure 1 Departure Time of Disposition: 19:31 Impression: Primary Impression: Hyperglycemia Additional Impression: UTI (urinary tract infection) Disposition: ADMITTED INPATIENT Condition: Serious Additional Instructions: Reviewed vital signs and complementary workup, positive was leukocytosis (11.3), lactic acid (2.1), and glycemia (387). Still pending urine analysis and UDS. Suspect UTI due to polyuria and leukocytosis. Have started IV antibiotic (ceftriaxone), ordered blood culture and urine culture, pending. Patient will benefit from IV antibiotic in hospital stay. Critical Care Note Critical Care Time?: No Stability Stability form required: No Heart Score Heart Score: Heart Score Response (Comments) Value History Slightly Suspicious 0 EKG N/A 0 Age <45 0 Risk Factors 1 or 2 risk factors 1 Troponin N/A 0 Total 1 ANTHONY TIDWELL RESIDENT Apr 28, 2024 18:04
[2024-04-28] MEDS: InsuLIN REG 1unit/0.01ml Soln (100units/ml) SC SCH ×2 (18:05→19:25)
[2024-04-28] MEDS: SODIUM CHLORIDE 0.9% 1,000 ML IV ONE (18:13)
[2024-04-28] MEDS ORDERED: ACCU-CHEK COMFORT CURVE STRIP VI SCH (18:15)
[2024-04-28 18:32] LABS: Basophils # (auto) 0.1 10 ^3/uL (0-0.2); Eosinophils # (auto) 0.2 10 ^3/uL (0-0.8); Eosinophils % (auto) 1.6 % (0.0-7.0); Hematocrit 46.9 % (41.0-53.0); Hemoglobin 16.3 g/dL (13.5-17.5); Lymphocytes # (auto) 3.5 10 ^3/uL (0.4-5.4); Lymphocytes % (auto) 31.1 % (10.0-50.0); Mean Corpuscular Hemoglobin 31.9 pg (28.0-32.0); Mean Corpuscular Hgb Conc. 34.6 g/dL (32.0-36.0); Mean Corpuscular Volume 91.9 fL (80.0-100.0); Monocytes # (auto) 0.7 10 ^3/uL (0-1.3); Monocytes % (auto) 6.6 % (0.0-12.0); Neutrophils # (auto) 6.8 10 ^3/uL (1.6-8.6); Neutrophils % (auto) 59.7 % (37.0-80.0); Platelet Count (auto) 288 10^3/uL (140-450); Red Blood Cells 5.11 10^6/uL (4.5-5.90); Red Cell Distribution Width 12.9 % (11.8-14.3); White Blood Cell 11.3 10^3/uL (4.4-10.8)
[2024-04-28 18:38] LABS: INR 0.91 (0.9-1.15); Prothrombin Time 9.7 sec (9.3-11.8)
[2024-04-28 18:39] LABS: Albumin 4.6 g/dL (3.2-4.8); Alkaline Phosphatase 95 U/L (46-116); Anion Gap 8 (5-15); Blood Urea Nitrogen 13 mg/dL (9-23); Calcium 9.5 mg/dL (8.7-10.4); Carbon Dioxide 22 mmol/L (20-31); Chloride 103 mmol/L (98-107); Magnesium 1.7 mg/dL (1.6-2.6); Potassium 4.6 mmol/L (3.5-5.1)
[2024-04-28 18:40] LABS: Total Protein 6.6 g/dL (5.7-8.2)
[2024-04-28 18:42] LABS: Lactic Acid w/Reflex 2.1 mmol/L (0.4-2.0)
[2024-04-28 18:52] LABS: Alanine Aminotransferase 67 U/L (7-40); Aspartate Aminotransferase 27 U/L (13-40); Bilirubin, Total < 0.2 mg/dL (0.2-1.0); Glucose 387 mg/dL (74-106); Sodium 133 mmol/L (136-145)
[2024-04-28] MEDS: SODIUM CHLORIDE 0.9% 1,000 ML IV SCH (19:00)
--- NOTE | 2024-04-28 19:29 | DVH ---
CHEST RADIOGRAPH Indication: Hyperglycemia, rule out infection Technique: Single frontal view of the chest was obtained Comparison: CXRP on DOS: 10/31/21, CHEST PORTABLE on DOS: 10/31/21 FINDINGS: Lines and Tubes: None Lungs: No focal consolidation. Pleura: No effusion. No pneumothorax. Cardiomediastinal contours: Unremarkable Bones: No acute osseous abnormality. IMPRESSION: 1. No acute cardiopulmonary disease.
[2024-04-28 19:44] LABS: Urine Bacteria None Seen /hpf (None Seen)
[2024-04-28 19:54] LABS: Urine Blood Negative /uL (Negative); Urine Clarity Clear (Clear); Urine Color Light-Yellow (Yellow); Urine Protein, UAD Negative (Negative); Urine Specific Gravity 1.033 (1.001-1.035); Urine Squamous Epithelial Cell None Seen /hpf (<5); Urine Urobilinogen Normal (Negative); Urine WBC 1 /HPF (0-3)
[2024-04-28] MEDS: cefTRIAXone 1GM/50ML D5W 50 ML IV ONE (20:13)
[2024-04-28 20:21] LABS: Amphetamine Screen, Urine Neg (NEGATIVE); Barbiturate Scree,Urine Neg (NEGATIVE); Benzodiazephine Screen, Urine Neg (NEGATIVE); Cannabinoid Screen, Urine Neg (NEGATIVE); Cocaine Screen, Urine Neg (NEGATIVE); Opiate Scree,Urine Neg (NEGATIVE); Phencyclidine Screen, Urine Neg (NEGATIVE)
--- NOTE | 2024-04-28 22:45 | DVHHPRES ---
History of Present Illness Resident Creating Document: [facility] History of Present Illness This is a 38-year-old male poor historian with past medical history of diabetes, hypertension, dyslipidemia, thyroid disease (the patient does not remember whether it is hyperthyroidism or hypo), came to the hospital due to generalized weakness. Per patient, the patient was feeling sick and dizzy since 2 days and checked his blood sugar at home which was high and prompted this visit. Per medical records, the patient is using paliperidone (for psychiatric problem), but the patient does not remember about the medicine. Per patient, the patient is noncompliant the medicine and could not provide the proper history. Patient denies, fever, chills, palpitation, chest pain, shortness of breath, nausea, vomiting, or any changes bowel and bladder. Patient lives with the mom, tried multiple times to speak through the phone with the patient's mom, but could not reach out. PMHx: diabetes, hypertension, dyslipidemia, thyroid disease (the patient does not remember whether it is hyperthyroidism or hypo) PSHx: Does not remember Family history: Does not tremor Social history: Per patient, does not have any education, has been jobless sensory 15 years, lives with the mom at home, current smoker, drank and call, uses methamphetamine, denies any other drug use. Home medication: Metformin 1 g daily, per patient he was prescribed insulin (Lantus, Humalog) and atorvastatin but the patient has not been using since 2 years Allergic history: No known allergies Review of Systems Review of Systems General: Reports generalized weakness and fatigue HEENT: No headaches, visiual changes, hearing loss, tinnitus, nasal congestion and discharge, and sore throat. Cardiovascular: Denies chest pain, palpitations, dyspnea on exertion, orthopnea, or claudication. Respiratory: No cough, and wheezing. Gastrointestinal: Denies nausea, vomiting, dysphagia, odynophagia, heartburn, abdominal pain, flatulence, bloating, diarrhea, constipation, change in stool, o r blood in stool. Genitourinary: No dysuria, hematuria, discharge, frequency, urgency, nocturia, incontinence, and urinary retention. Endocrine: Reports polydipsia and polyuria Neurological: No dizziness, extremity weakness and numbness, tremors, gait disturbance, seizures, and memory impairment. Psychiatric: Denies depression, anxiety,or insomnia. Musculoskeletal: Denies neck pain, stiffness and swelling, back pain, muscle weakness, joint pain, stiffness, swelling, or limited range of motion. Skin: No rashes, itching, skin lesion, changes in hair, nail, skin texture and breast. Hematologic/Lymphatic: Denies easy bruising, bleeding tendencies, or lymph node enlargement. Allergies: Coded Allergies: No Known Drug Allergy (Unverified Allergy, Unknown, 08/29/23) Medications Current Medications Medications Dose Ordered Sig/Abhishek Route Start Time Stop Time Status Last Admin Dose Admin Diagnostic Test (Pha) 1 strip IQ4HR 04/28/24 18:08 04/28/24 20:00 1 STRIP Insulin Human Regular IQ4HR SC 04/28/24 18:08 04/28/24 19:25 20 UNITS Dextrose 50 ml UD PRN IV 04/28/24 18:15 Sodium Chloride 1,000 ml @ 125 mls/hr Q8H IV 04/28/24 19:00 Ceftriaxone Sodium 50 ml @ 100 mls/hr DAILY@09 IV 04/29/24 09:00 Exam Vital Signs Vital Signs Date Time Temp Pulse Resp B/P (MAP) Pulse Ox O2 Delivery O2 Flow Rate FiO2 04/28/24 20:01 97.9 110 18 133/83 (100) 95 97.9 04/28/24 17:54 Room Air Exam General Appearance: Alert, Oriented X3, Cooperative, poor hygiene could not provide the proper history HEENT: Atraumatic, PERRLA, EOMI, Mucous membrane moist/pink Respiratory: Clear to auscultation, Normal air movement Cardiovascular: Regular rate, Normal S1, Normal S2, No murmurs, no chest wall tenderness Abdominal: Normal bowel sounds, Soft, No tenderness, No hepatospenomegaly, No masses Extremities: No clubbing, No cyanosis, No edema, Normal pulses, No tenderness/swelling Skin: No rashes, No breakdown, No significant lesion Neuro: Normal gait, Normal speech, Strength at 5/5 X4 ext, Normal tone, Sensation intact, Cranial nerves 3-12 NL, Reflexes 2+ Psych/Mental Status: Mental status NL, Mood NL Labs/Xrays Labs Test 04/28/24 20:05 04/28/24 19:59 04/28/24 19:20 04/28/24 17:59 Range/Units Lactic Acid Level 2.8 *H 0.4-2.0 mmol/L POC Glucose 414 *H 70-106 mg/dl Urine Color Light-yellow Yellow Urine Clarity Clear Clear Urine pH 5.0 5.0-9.0 Urine Specific [place] 1.033 1.001-1.035 Urine Protein Negative Negative Urine Ketones Trace Negative Urine Blood Negative Negative /uL Urine Nitrite Negative Negative Urine Bilirubin Negative Negative Urine Urobilinogen Normal Negative mg/dL Urine Leukocyte Esterase Negative Negative /uL Urine RBC 2 0 - 3 /hpf Urine Microscopic WBC 1 0-3 /HPF Urine Squamous Epithelial Cells None seen <5 /hpf Urine Bacteria None seen None Seen /hpf Urine Glucose 4+ H Normal mg/dL Urine Opiates Screen Neg NEGATIVE Urine Fentanyl Screen Neg NEGATIVE Urine Barbiturates Screen Neg NEGATIVE Urine Phencyclidine Screen Neg NEGATIVE Urine Amphetamines Screen Neg NEGATIVE Urine Benzodiazepines Screen Neg NEGATIVE Urine Cocaine Screen Neg NEGATIVE Urine Cannabinoids Screen Neg NEGATIVE White Blood Count 11.3 H 4.4-10.8 10^3/uL Red Blood Count 5.11 4.5-5.90 10^6/uL Hemoglobin 16.3 13.5-17.5 g/dL Hematocrit 46.9 41.0-53.0 % Mean Corpuscular Volume 91.9 80.0-100.0 fL Mean Corpuscular Hemoglobin 31.9 28.0-32.0 pg Mean Corpuscular Hemoglobin Concent 34.6 32.0-36.0 g/dL Red Cell Distribution Width 12.9 11.8-14.3 % Platelet Count 288 140-450 10^3/uL Mean Platelet Volume 7.9 6.9-10.8 fL Neutrophils (%) (Auto) 59.7 37.0-80.0 % Lymphocytes (%) (Auto) 31.1 10.0-50.0 % Monocytes (%) (Auto) 6.6 0.0-12.0 % Eosinophils (%) (Auto) 1.6 0.0-7.0 % Basophils (%) (Auto) 1.0 0.0-2.0 % Neutrophils # (Auto) 6.8 1.6-8.6 10 ^3/uL Lymphocytes # (Auto) 3.5 0.4-5.4 10 ^3/uL Monocytes # (Auto) 0.7 0-1.3 10 ^3/uL Eosinophils # (Auto) 0.2 0-0.8 10 ^3/uL Basophils # (Auto) 0.1 0-0.2 10 ^3/uL Nucleated Red Blood Cells 0.0 % Prothrombin Time 9.7 9.3-11.8 sec Prothrombin Time INR 0.91 0.9-1.15 Activated Partial Thromboplast Time 25.0 24.5-34.5 SEC Sodium Level 133 L 136-145 mmol/L Potassium Level 4.6 3.5-5.1 mmol/L Chloride Level 103 98-107 mmol/L Carbon Dioxide Level 22 20-31 mmol/L Anion Gap 8 5-15 Blood Urea Nitrogen 13 9-23 mg/dL Creatinine 0.81 0.700-1.30 mg/dL Glomerular Filtration Rate Calc 116 >90 mL/min BUN/Creatinine Ratio 16.0 10.0-20.0 Serum Glucose 387 H 74-106 mg/dL Calcium Level 9.5 8.7-10.4 mg/dL Phosphorus Level 4.0 2.4-5.1 mg/dL Magnesium Level 1.7 1.6-2.6 mg/dL Total Bilirubin < 0.2 L 0.2-1.0 mg/dL Aspartate Amino Transferase (AST) 27 13-40 U/L Alanine Aminotransferase (ALT) 67 H 7-40 U/L Alkaline Phosphatase 95 46-116 U/L Ammonia 26 11-32 umol/L Total Protein 6.6 5.7-8.2 g/dL Albumin 4.6 3.2-4.8 g/dL Thyroid Stimulating Hormone (TSH) 2.70 0.55-4.78 uIU/mL Assessment/Plan Assessment/Plan Uncontrolled Diabetes type 2 with hyperglycemia Ruled out DKA and HHS Lactic acidosis HB A1c, from 11/27/2017 shows 11.1 Insulin regular 5 units IV Lantus 20 units daily Aggressive SS IV normal saline Pseudo hyponatremia, likely due to hyperglycemia History of dyslipidemia Continue atorvastatin History of thyroid disease Per patient, the patient has thyroid disease, does not remember with the it is hyperthyroidism or hypothyroidism TSH is 2.7 History of hypertension Transaminitis DIET: Diabetic diet CODE STATUS: Goal of care discussed for more than 21 minutes, full code DISPOSITION: Med/surge Patient's status and paln discussed with the patient. Tried multiple times to speak with the patient's mom through the phone, but could not reach out. Case discussed with Dr. Myles. Plan discussed with: Patient, Other Date of Service: Apr 28, 2024 Billing Provider: SPENCER MYLES MD Common Visit Codes: [id number] INP/OBS CARE (HIGH) [facility] RES[facility] Apr 28, 2024 22:45 SPENCER MYLES MD Apr 30, 2024 00:21
[2024-04-29] VITALS (9 sets, daily range): BP systolic 106–125; BP diastolic 59–80; PULSE 72–94; RESP 16–97; TEMP 97.5–98.5; O2SAT 92–99
[2024-04-29] MEDS: INSULIN LANTUS (GLARGINE) 1 /0.01ml (100units/ml) SC ONE (00:45)
[2024-04-29] MEDS: InsuLIN REG 1unit/0.01ml Soln (100units/ml) IV ONE (00:45)
[2024-04-29] MEDS: SODIUM CHLORIDE 0.9% 1,000 ML IV ONE (01:34)
[2024-04-29 03:16] LABS: Basophils # (auto) 0 10 ^3/uL (0-0.2); Basophils % (auto) 0.5 % (0.0-2.0); Eosinophils # (auto) 0.2 10 ^3/uL (0-0.8); Eosinophils % (auto) 2.1 % (0.0-7.0); Hematocrit 44.1 % (41.0-53.0); Hemoglobin 15.2 g/dL (13.5-17.5); Lymphocytes # (auto) 3.2 10 ^3/uL (0.4-5.4); Mean Corpuscular Hemoglobin 31.9 pg (28.0-32.0); Mean Corpuscular Hgb Conc. 34.4 g/dL (32.0-36.0); Mean Corpuscular Volume 92.6 fL (80.0-100.0); Monocytes # (auto) 0.7 10 ^3/uL (0-1.3); Monocytes % (auto) 8.9 % (0.0-12.0); Neutrophils # (auto) 4.2 10 ^3/uL (1.6-8.6); Neutrophils % (auto) 50.5 % (37.0-80.0); Platelet Count (auto) 254 10^3/uL (140-450); Red Blood Cells 4.76 10^6/uL (4.5-5.90); Red Cell Distribution Width 12.9 % (11.8-14.3); White Blood Cell 8.4 10^3/uL (4.4-10.8)
[2024-04-29 03:25] LABS: Alkaline Phosphatase 81 U/L (46-116); Anion Gap 7 (5-15); Aspartate Aminotransferase 15 U/L (13-40); BUN/Creatinine Ratio 14.5 (10.0-20.0); Bilirubin, Total 0.4 mg/dL (0.2-1.0); Blood Urea Nitrogen 12 mg/dL (9-23); Calcium 9.4 mg/dL (8.7-10.4); Carbon Dioxide 23 mmol/L (20-31); Chloride 107 mmol/L (98-107); Potassium 4.1 mmol/L (3.5-5.1); Sodium 137 mmol/L (136-145); Total Protein 6.2 g/dL (5.7-8.2)
[2024-04-29 03:29] LABS: Alanine Aminotransferase 54 U/L (7-40); Glucose 269 mg/dL (74-106)
[2024-04-29] MEDS: ATORVASTATIN 20 MG TAB PO ONE (05:22)
[2024-04-29] MEDS ORDERED: cefTRIAXone 1GM/50ML D5W 50 ML IV SCH (09:00)
[2024-04-29] MEDS ORDERED: DEXTROSE (50%) 50ML SYRG IV PRN (10:45)
--- NOTE | 2024-04-29 11:38 | DVHPNRES ---
Progress Note Date Seen: Apr 29, 2024 Resident Creating Document: BENITEZ SHORE RESIDENT Has the PT tested + for MRSA If YES, has PT been informed?: No Medical Necessity Reason Pt with a Central, PICC or Fol: No Medical Necessity Reason Uncontrolled type 2 diabetes Hyperglycemia Subjective Review of Systems This is a 38-year-old male poor historian with past medical history of diabetes, hypertension, dyslipidemia, thyroid disease (the patient does not remember whether it is hyperthyroidism or hypo), brought by the EMS to the hospital due to generalized weakness and feeling unwell. Per patient, he was feeling sick and dizzy since for 2 days prior to presentation. So, he checked his blood glucose and noted it was elevated. Thus, prompting his visit to the ED. Per medical records, the patient is using paliperidone (for psychiatric problem), but the patient does not remember about the medicine. Per patient, he is noncomplianthis medications and even run out of all of them. The last time family care was last year and he has not had any refills on any of his medications. Patient denies, fever, chills, palpitation, chest pain, shortness of breath, nausea, vomiting, or any changes bowel and bladder. Patient lives with the mom, tried multiple times to speak through the phone with the patient's mom, but could not reach out. I called the mother to get a thorough history from her; however, she is also a poor historian. According to mother, patient told her that he was feeling unwell and nothing else. Mother said patient does not really talk much. Mother, said she takes him to psychiatrist office monthly for a I would characterize antipsychotics to psychiatric medications that he takes monthly but does not remember the name. Mother thinks son has schizophrenia but she is not sure. Patient had appendectomy when he was in middle school The ED his initial vitals were temperature 97.7, HR: 115, blood pressure BP 122/78 and pulse 94. CBC of 11.3 lactic acid : 2.1, glucose: 387 and his hemoglobin A1c was 12.9. Was started on Lantus 20 units, given atorvastatin, normal saline running at 125 mL/hour and aggressive sliding scale. Constitutional: Denies fever no chills, Just feeling of unwell HEENT: Denies headache, ear pain, ear discharges, conjunctivitis, nasal discharge throat pain Cardiovascular: Denies chest pain, palpitation, orthopnea, PND, or pedal edema Respiratory: Denies shortness of breath, cough cough, sputum production, hemoptysis, GI: Denies abdominal pain, nausea, vomiting, diarrhea, hematemesis, hematochezia, : Denies frequency, urgency, hematuria, Endocrine: Denies unintentional weight gain or weight loss, feeling of hot flashes, Adin: Denies easy bruising, bleeding disorders, epistaxis Musculoskeletal: Denies joint pains, muscle aches Psych: No evidence of depression, savanna, suicidal ideation Objective vital signs Vital Sign Date Time Temp Pulse Resp B/P (MAP) Pulse Ox O2 Delivery O2 Flow Rate FiO2 04/29/24 08:23 97.8 81 97 125/70 (88) 97 97.8 04/29/24 03:32 Room Air* 0 21 Total Intake and Output 04/28/24 04/28/24 04/29/24 15:00 23:00 07:00 Intake Total 1050 ml Balance 1050 ml medications Current Medications Medications Dose Ordered Sig/Abhishek Route Start Time Stop Time Status Last Admin Dose Admin Diagnostic Test (Pha) 1 strip IQ4HR 04/28/24 18:08 04/29/24 08:16 1 STRIP Insulin Human Regular IQ4HR SC 04/28/24 18:08 04/29/24 08:21 4 UNITS Dextrose 50 ml UD PRN IV 04/28/24 18:15 Sodium Chloride 1,000 ml @ 125 mls/hr Q8H IV 04/28/24 19:00 Insulin Glargine 20 units DAILY@1000 SC 04/30/24 10:00 Atorvastatin Calcium 40 mg HS PO 04/29/24 22:00 Examination General Appearance: Alert, Oriented X3, Cooperative, No acute distress, disheveled HEENT: Atraumatic, PERRLA, EOMI, Mucous membrane moist/pink Respiratory: Clear to auscultation, Normal air movement Cardiovascular: Regular rate, Normal S1, Normal S2, No murmurs, no chest wall tenderness Abdominal: Distention but not tenderness, bowel sounds present, no scars noted Extremities: No clubbing, No cyanosis, No edema, Normal pulses, No tenderness/swelling Skin: No rashes, No breakdown, No significant lesion Neuro: Normal gait, Normal speech but low volume, Strength at 5/5 X4 ext, Normal tone, Sensation intact, Cranial nerves 3-12 NL, Reflexes 2+ Psych/Mental Status: normal mood and affect. he has insightt laboratory and microbiology Laboratory Tests 04/29/24 02:36 Test 04/29/24 02:36 Range/Units Serum Glucose 269 #H 74-106 mg/dL Labs and/or images reviewed: Labs reviewed by me, Image(s) reviewed by me Problem List/Assessment/Plan Problem List/Assessment/Plan Assessment Uncontrolled type 2 diabetes with hyperglycemia without DKA; A1c of 12.9% Pseudo hyponatremia, due to hyperglycemia Suspected sepsis Leukocytosis Lactic acidosis Obesity BMI 38.8 Schizophrenia Hypertension Hyperlipidemia Medication noncompliant Plan Continue Lantus bolus bolus 30 units Moderate sliding scale protocol Continue atorvastatin IV fluid hydration 125ml /hr CMP daily IV ceftriaxone Patient to be adherent to his medications and follow up with his primary care physicians as instructed Code status: full Goal of care discussed for 20 minute Case and plan discussed with Dr. Perry Plan discussed with: Patient, Other (RN) My Orders My Orders Orders - BENITEZ SHORE RESIDENT Procedure Category Date Status Time Glucose Blood PHA 04/29/24 Transmitted (Accu-Chek Comfort 12:00 Moderate Insulin Ss PHA 04/29/24 Transmitted 12:00 Dextrose 50% Syringe PHA 04/29/24 Transmitted 10:45 Addendum Addendum Addendum I was physically present for the vickers portions of the service provided to patient by THE RESIDENT. I have reviewed the documentation, discussed the case with resident and agree with the resident's documentation except as noted. Also the patient's clinical case was discussed with the patient's nurse. This medical document was created using an electronic medical record system with computerized dictation system. Although this document has been carefully reviewed, there might still be some phonetic and typographical errors. These areas are purely typographical due to imperfections of the software programs, and do not reflect any compromise in the patient's medical care. Late signature. Date of Service: Apr 29, 2024 Billing Provider: GODFREY PERRY MD Common Visit Codes: [id number] INP/OBS CARE(HIGH) Secondary Visit Codes: [id number] CARE PLAN 30 MINUTES (20 minutes) BENITEZ SHORE Apr 29, 2024 11:38 GODFREY PERRY MD Apr 30, 2024 21:59
[2024-04-29] MEDS: ACCU-CHEK COMFORT CURVE STRIP VI SCH (12:05)
[2024-04-29] MEDS: InsuLIN REG 1unit/0.01ml Soln (100units/ml) SC SCH (12:12)
[2024-04-29] MEDS ORDERED: METF-372 PO (16:24)
[2024-04-29] MEDS: ATORVASTATIN 20 MG TAB PO SCH (21:05)
[2024-04-30] VITALS (8 sets, daily range): BP systolic 108–137; BP diastolic 61–84; PULSE 69–79; RESP 18–21; TEMP 97.3–98.5; O2SAT 92–98
[2024-04-30 06:51] LABS: Basophils # (auto) 0 10 ^3/uL (0-0.2); Basophils % (auto) 0.5 % (0.0-2.0); Eosinophils # (auto) 0.2 10 ^3/uL (0-0.8); Eosinophils % (auto) 2.9 % (0.0-7.0); Hematocrit 42.4 % (41.0-53.0); Hemoglobin 14.8 g/dL (13.5-17.5); Lymphocytes # (auto) 2.2 10 ^3/uL (0.4-5.4); Mean Corpuscular Hgb Conc. 34.9 g/dL (32.0-36.0); Mean Corpuscular Volume 91.7 fL (80.0-100.0); Monocytes # (auto) 0.4 10 ^3/uL (0-1.3); Monocytes % (auto) 7.3 % (0.0-12.0); Neutrophils # (auto) 3.3 10 ^3/uL (1.6-8.6); Neutrophils % (auto) 54.3 % (37.0-80.0); Nucleated Red Blood Cells % 0.1 %; Platelet Count (auto) 216 10^3/uL (140-450); Red Blood Cells 4.63 10^6/uL (4.5-5.90); Red Cell Distribution Width 13.1 % (11.8-14.3); White Blood Cell 6.1 10^3/uL (4.4-10.8)
[2024-04-30 07:08] LABS: Albumin 3.8 g/dL (3.2-4.8); Alkaline Phosphatase 72 U/L (46-116); Anion Gap 9 (5-15); Aspartate Aminotransferase 24 U/L (13-40); BUN/Creatinine Ratio 10.1 (10.0-20.0); Calcium 9.2 mg/dL (8.7-10.4); Carbon Dioxide 22 mmol/L (20-31); Chloride 106 mmol/L (98-107); Potassium 4.1 mmol/L (3.5-5.1); Sodium 137 mmol/L (136-145); Total Protein 5.8 g/dL (5.7-8.2)
[2024-04-30 07:10] LABS: Alanine Aminotransferase 60 U/L (7-40); Blood Urea Nitrogen 7 mg/dL (9-23); Glucose 217 mg/dL (74-106)
[2024-04-30 07:11] LABS: Bilirubin, Total 0.4 mg/dL (0.2-1.0)
[2024-04-30] MEDS: INSULIN LANTUS (GLARGINE) 1 /0.01ml (100units/ml) SC SCH (09:42)
--- NOTE | 2024-04-30 10:29 | DVHPN2 ---
Subjective Feeling slightly better Reviewed: Care Plan, H&P, Labs, Medications, Previous Orders, Radiology Changes from previous H/P or p: Changes Objective Vitals Vital Signs Date Time Temp Pulse Resp B/P (MAP) Pulse Ox O2 Delivery O2 Flow Rate FiO2 04/30/24 09:00 97.6 72 20 128/84 (99) 97 97.6 04/30/24 08:00 Room Air* 0 21 Intake/Output Intake and Output 04/30/24 07:00 Intake Total 300 ml Output Total 250 ml Balance 50 ml Intake Oral 300 ml Output Urine Total 250 ml # Voids 2 General Appearance: Alert, Oriented X3, Cooperative, No acute distress, Other (Morbidly obese) HEENT: Atraumatic Lungs: Clear to auscultation, Normal air movement Cardiovascular: Regular rate, Normal S1, Normal S2 Abdomen: Normal bowel sounds, Soft, No tenderness Neuro: Normal speech, Cranial nerves 3-12 NL Psych/Mental Status: Mental status NL, Mood NL Medications Current Medications Medications Dose Ordered Sig/Abhishek Route Start Time Stop Time Status Last Admin Dose Admin Sodium Chloride 1,000 ml @ 125 mls/hr Q8H IV 04/28/24 19:00 04/29/24 21:03 125 MLS/HR Insulin Glargine 20 units DAILY@1000 SC 04/30/24 10:00 04/30/24 09:42 20 UNITS Atorvastatin Calcium 40 mg HS PO 04/29/24 22:00 04/29/24 21:05 40 MG Diagnostic Test (Pha) 1 strip IQ4HR 04/29/24 12:00 04/30/24 04:53 1 STRIP Insulin Human Regular IQ4HR SC 04/29/24 12:00 04/30/24 07:44 6 UNITS Dextrose 50 ml UD PRN IV 04/29/24 10:45 Laboratory Results Laboratory Tests 04/30/24 06:19 Chemistry Test 04/30/24 06:19 Albumin 3.8 g/dL (3.2-4.8) Calcium Level 9.2 mg/dL (8.7-10.4) Total Protein 5.8 g/dL (5.7-8.2) LFT Test 04/30/24 06:19 Alanine Aminotransferase (ALT) 60 U/L (7-40) H Alkaline Phosphatase 72 U/L (46-116) Aspartate Amino Transferase (AST) 24 U/L (13-40) Total Bilirubin 0.4 mg/dL (0.2-1.0) Urinalysis Test 04/28/24 19:20 Urine Color Light-yellow (Yellow) Urine Clarity Clear (Clear) Urine pH 5.0 (5.0-9.0) Urine Specific [place] 1.033 (1.001-1.035) Urine Protein Negative (Negative) Urine Ketones Trace (Negative) Urine Blood Negative /uL (Negative) Urine Nitrite Negative (Negative) Urine Bilirubin Negative (Negative) Urine Urobilinogen Normal mg/dL (Negative) Urine Leukocyte Esterase Negative /uL (Negative) Urine RBC 2 /hpf (0 - 3) Urine Microscopic WBC 1 /HPF (0-3) Urine Squamous Epithelial Cells None seen /hpf (<5) Urine Bacteria None seen /hpf (None Seen) Urine Glucose 4+ mg/dL (Normal) H Microbiology Microbiology Date/Time Source Procedure Growth Status 04/28/24 20:05 Blood Blood Culture - Preliminary NO GROWTH AFTER 24 HOURS OF INCUBATION. Resulted 04/28/24 19:20 Voided Urine Urine Culture - Preliminary Resulted Labs and/or images reviewed: Labs reviewed by me, Image(s) reviewed by me Assessment/Plan Assessment/Plan Covering Dr. Kraft: #Uncontrolled type 2 diabetes with hyperglycemia without DKA; A1c of 12.9% #Pseudo hyponatremia, due to hyperglycemia #Suspected sepsis with leukocytosis and lactic acidosis #Morbid obesity #Meth use disorder #Schizophrenia #Hypertensive heart disease #Hyperlipidemia #Medications nonadherence #Elevated LFTs; most likely due to fatty liver #Metabolic syndrome Increased Lantus dose to 30 units daily Continue insulin sliding scale with hypoglycemia protocol No more antibiotics as the patient's blood and urine culture showed no growth; also leukocytosis lactic acidosis resolved; received IV ceftriaxone Mostly normal blood pressure readings during hospitalization; to start antihypertensive medications if indicated Continue statin for now Unknown what medication, the patient takes for schizophrenia; to monitor for now Counseled on meth use cessation for 22 minutes Consulted social media coordinator for discharge planning including provided resources for meth use cessation Counseled on medications adherence Avoid hepatotoxic agents Continue monitoring Late Entry. This medical document was created using an electronic medical record system with computerized dictation system. Although this document has been carefully reviewed, there might still be some phonetic and typographical errors. These areas are purely typographical due to imperfections of the software programs, and do not reflect any compromise in the patient's medical care. Plan discussed with: Patient, Other (Nurse) My Orders Orders - GODFREY PERRY MD Procedure Category Date Status Time * [employer] CONS 04/30/24 Transmitted Consult Date of Service: Apr 30, 2024 Billing Provider: GODFREY PERRY MD Common Visit Codes: [id number] INP/OBS CARE(HIGH) Secondary Visit Codes: 78695-UBQQP CHNG SMOKING >10MIN (Counseled on meth use cessation for 22 minutes) GODFREY PERRY MD Apr 30, 2024 10:29
[2024-05-01 01:00] VITALS: BP 123/75; PULSE 69; RESP 19; TEMP 97.8; O2SAT 96
[2024-05-01 05:02] VITALS: BP 123/74; PULSE 67; RESP 19; TEMP 97.8; O2SAT 97
[2024-05-01 06:42] LABS: Albumin 3.7 g/dL (3.2-4.8); Alkaline Phosphatase 71 U/L (46-116); Anion Gap 9 (5-15); Aspartate Aminotransferase 28 U/L (13-40); BUN/Creatinine Ratio 9.7 (10.0-20.0); Calcium 9.3 mg/dL (8.7-10.4); Carbon Dioxide 23 mmol/L (20-31); Chloride 107 mmol/L (98-107); Sodium 139 mmol/L (136-145)
[2024-05-01 06:43] LABS: Bilirubin, Total 0.4 mg/dL (0.2-1.0); Total Protein 5.9 g/dL (5.7-8.2)
[2024-05-01 06:48] LABS: Alanine Aminotransferase 63 U/L (7-40); Blood Urea Nitrogen 7 mg/dL (9-23); Glucose 179 mg/dL (74-106)
[2024-05-01 08:00] VITALS: PULSE 70; RESP 18; O2SAT 96
[2024-05-01 09:00] VITALS: BP 120/75; PULSE 70; RESP 18; TEMP 98.1; O2SAT 96
[2024-05-01] MEDS ORDERED: BLOO-200 XX (10:41)
[2024-05-01] MEDS ORDERED: INSLANTI SC (12:02)
[2024-05-01] MEDS ORDERED: METF-370 PO (12:03)
[2024-05-01] MEDS: INSULIN LANTUS (GLARGINE) 1 /0.01ml (100units/ml) SC SCH (12:18)
[2024-05-01 12:41] VITALS: BP 107/66; PULSE 92; RESP 18; TEMP 98.1; O2SAT 94
[2024-05-01 12:47] VITALS: BP 131/91; PULSE 77; RESP 20; TEMP 97.5; O2SAT 92
--- NOTE | 2024-05-01 13:56 | DVHDSRES ---
Discharge Summary Date of Admission Resident Creating Document: BENITEZ SHORE Apr 28, 2024 at 22:44 Date of Discharge: May 01, 2024 Admitting Diagnosis Uncontrolled diabetes with hyperglycemia Labs/Diagnostic Data: PATIENT: ANTHONY RODRIGUEZ ACCT: [id number] UNIT: [id number] : 1985 LOC: ER ROOM / BED: / AGE / SEX: 38 / M ADM STATUS: REG ER SERVICE 1703 ORDERING PHYSICIAN: ANTHONY TIDWELL PROCEDURE(s): CXR1 - CHEST XRAY 1 VIEW REASON: Hyperglycemia, rule out infection ORDER NUMBER(s): [id number], ACCESSION NUMBER(s): [id number] CHEST RADIOGRAPH Indication: Hyperglycemia, rule out infection Technique: Single frontal view of the chest was obtained Comparison: CXRP on DOS: 10/31/21, CHEST PORTABLE on DOS: 10/31/21 FINDINGS: Lines and Tubes: None Lungs: No focal consolidation. Pleura: No effusion. No pneumothorax. Cardiomediastinal contours: Unremarkable Bones: No acute osseous abnormality. IMPRESSION: 1. No acute cardiopulmonary disease. ATED BY: MARGARET MARCANO Jr. DO DICTATED DATE/TIME: 04/28/241926 Laboratory Results Test 05/01/24 11:34 05/01/24 06:04 04/30/24 06:19 04/29/24 02:36 POC Glucose 207 mg/dl (70-106) Sodium Level 139 mmol/L (136-145) Potassium Level 4.0 mmol/L (3.5-5.1) Chloride Level 107 mmol/L (98-107) Carbon Dioxide Level 23 mmol/L (20-31) Anion Gap 9 (5-15) Blood Urea Nitrogen 7 mg/dL (9-23) Creatinine 0.72 mg/dL (0.700-1.30) Glomerular Filtration Rate Calc 121 mL/min (>90) BUN/Creatinine Ratio 9.7 (10.0-20.0) Serum Glucose 179 mg/dL (74-106) Calcium Level 9.3 mg/dL (8.7-10.4) Total Bilirubin 0.4 mg/dL (0.2-1.0) Aspartate Amino Transferase (AST) 28 U/L (13-40) Alanine Aminotransferase (ALT) 63 U/L (7-40) Alkaline Phosphatase 71 U/L (46-116) Total Protein 5.9 g/dL (5.7-8.2) Albumin 3.7 g/dL (3.2-4.8) White Blood Count 6.1 10^3/uL (4.4-10.8) Red Blood Count 4.63 10^6/uL (4.5-5.90) Hemoglobin 14.8 g/dL (13.5-17.5) Hematocrit 42.4 % (41.0-53.0) Mean Corpuscular Volume 91.7 fL (80.0-100.0) Mean Corpuscular Hemoglobin 32.0 pg (28.0-32.0) Mean Corpuscular Hemoglobin Concent 34.9 g/dL (32.0-36.0) Red Cell Distribution Width 13.1 % (11.8-14.3) Platelet Count 216 10^3/uL (140-450) Mean Platelet Volume 7.9 fL (6.9-10.8) Neutrophils (%) (Auto) 54.3 % (37.0-80.0) Lymphocytes (%) (Auto) 35.0 % (10.0-50.0) Monocytes (%) (Auto) 7.3 % (0.0-12.0) Eosinophils (%) (Auto) 2.9 % (0.0-7.0) Basophils (%) (Auto) 0.5 % (0.0-2.0) Neutrophils # (Auto) 3.3 10 ^3/uL (1.6-8.6) Lymphocytes # (Auto) 2.2 10 ^3/uL (0.4-5.4) Monocytes # (Auto) 0.4 10 ^3/uL (0-1.3) Eosinophils # (Auto) 0.2 10 ^3/uL (0-0.8) Basophils # (Auto) 0 10 ^3/uL (0-0.2) Nucleated Red Blood Cells 0.1 % Hemoglobin A1c 12.9 % A1C (<5.7) Serum Osmolality 293 mOsm/kg (278-298) Lactic Acid Level 1.8 mmol/L (0.4-2.0) Beta-Hydroxybutyric Acid 0.092 mmol/L (< 0.4) Plasma/Serum Blood Alcohol < 3.0 mg/dL (<10) Test 04/28/24 19:20 04/28/24 17:59 Urine Color Light-yellow (Yellow) Urine Clarity Clear (Clear) Urine pH 5.0 (5.0-9.0) Urine Specific [place] 1.033 (1.001-1.035) Urine Protein Negative (Negative) Urine Ketones Trace (Negative) Urine Blood Negative /uL (Negative) Urine Nitrite Negative (Negative) Urine Bilirubin Negative (Negative) Urine Urobilinogen Normal mg/dL (Negative) Urine Leukocyte Esterase Negative /uL (Negative) Urine RBC 2 /hpf (0 - 3) Urine Microscopic WBC 1 /HPF (0-3) Urine Squamous Epithelial Cells None seen /hpf (<5) Urine Bacteria None seen /hpf (None Seen) Urine Glucose 4+ mg/dL (Normal) Urine Opiates Screen Neg (NEGATIVE) Urine Fentanyl Screen Neg (NEGATIVE) Urine Barbiturates Screen Neg (NEGATIVE) Urine Phencyclidine Screen Neg (NEGATIVE) Urine Amphetamines Screen Neg (NEGATIVE) Urine Benzodiazepines Screen Neg (NEGATIVE) Urine Cocaine Screen Neg (NEGATIVE) Urine Cannabinoids Screen Neg (NEGATIVE) Prothrombin Time 9.7 sec (9.3-11.8) Prothrombin Time INR 0.91 (0.9-1.15) Activated Partial Thromboplast Time 25.0 SEC (24.5-34.5) Phosphorus Level 4.0 mg/dL (2.4-5.1) Magnesium Level 1.7 mg/dL (1.6-2.6) Ammonia 26 umol/L (11-32) Thyroid Stimulating Hormone (TSH) 2.70 uIU/mL (0.55-4.78) Other Laboratory Tests 05/01/24 06:04 04/30/24 06:19 Brief Hx & Hospital Course: Hospital course Anthony Rodriguez is a 38-year-old male with a past medical history of diabetes, schizophrenia (on paliperidone), hypertension, dyslipidemia, thyroid disease (the patient does not remember whether it is hyperthyroidism or hypo), who was brought in my the EMS due to generalized weakness and feeling unwell. Per patient, he was feeling sick and dizzy for 2 days prior to presentation. Patient checked his blood glucose and noted it was elevated. Thus, prompting his visit to the ED. Patient admits to not being compliant with his medications and has ran out of his insulin for 6 months. His initial vitals were temperature 97.7, HR: 115, blood pressure BP 122/78 and pulse 94. CBC of 11.3 lactic acid: 2.1, glucose: 387 and his hemoglobin A1c was 12.9. Was started on Lantus 20 units, given atorvastatin, normal saline running at 125 mL/hour and aggressive sliding scale. Patient was closely monitored and labs values corrected as necessary. Lantus increased to 30 unit daily. Vitals are stable and his lab work this morning, the values are all in the normal range. Patient is feeling better. Serum glucose is 144. Will discharge patient home today with glucometer and test strip, insulin and metformin. Patient advised to follow up with a with his PCP for proper diabetes control. And if possible, a referral to the business continuity strategy director. Also advised patient to follow up at the discharge Clinic within a week to ensure that his blood sugars are trending in the right direction. Patient also advised to be very adherent with his antipsychotic medications which she gets once a month injection. Examination General Appearance: Alert, Oriented X3, Cooperative, No acute distress, disheveled and morbidly obese HEENT: Atraumatic, PERRLA, EOMI, Mucous membrane moist/pink Respiratory: Clear to auscultation, Normal air movement Cardiovascular: Regular rate, Normal S1, Normal S2, No murmurs, no chest wall tenderness Abdominal: Distended but not tenderness, bowel sounds present, no scars noted Extremities: No clubbing, No cyanosis, No edema, Normal pulses, No tenderness/swelling Skin: No rashes, No breakdown, No significant lesion Neuro: Normal gait, Normal speech but low volume, Strength at 5/5 X4 ext, Normal tone, Sensation intact, Cranial nerves 3-12 NL, Reflexes 2+ Psych/Mental Status: normal mood and affect. he has insightt Diagnosis Uncontrolled type 2 diabetes with hyperglycemia without DKA; A1c of 12.9% Pseudo hyponatremia, due to hyperglycemia Suspected sepsis Leukocytosis Lactic acidosis Morbid Obesity BMI 41.9 Schizophrenia Hypertension Hyperlipidemia Medication noncompliant Discharge plan Sent home with a glucometer with lancets for daily blood glucose check Lantus 30 units daily Metformin 500 mg b.i.d. Continue antipsychotic medications as is Continue all home medications Report at the discharge clinic within 7 days Follow up with the primary care within 1-2 weeks for diabetes care and any possible referrals This case and discussed with case and discharge plan discussed with Dr. Shannon Condition at Discharge: Good Final Diagnosis/Problems List Uncontrolled type 2 diabetes with hyperglycemia without DKA; A1c of 12.9% Pseudo hyponatremia, due to hyperglycemia Suspected sepsis with leukocytosis and lactic acidosis Morbid obesity Meth use disorder Schizophrenia Hypertensive heart disease Hyperlipidemia Medications nonadherence Elevated LFTs; most likely due to fatty liver Discharge Disposition: Home Discharge Instruct/Medications Diet: See Comment Diet comment: watch his diet Eat healthy diets Activity: No Restrictions, As Tolerated Follow Up/Referral: 7 days at the discharge clinic follow up with PCP and his psychiatrist Medications: Insulin metformin home medication Discharge Statement: "Patient was advised to return to the ER or call 911 if any headaches, dizziness, shortness of breath, chest pain, abdominal pain, bleeding, fevers, or worsening of medical condition. Patient was counseled about treatment plan, medications, possible side effects, patientverbalized understanding. All questions were answered to the best of my ability. This discharge took greater then 30 minutes in planning, reviewing documentation, counseling the patient, and discussing with other team members." ASSESSMENT ASSESSMENT Assessment Uncontrolled type 2 diabetes with hyperglycemia without DKA; A1c of 12.9% #Pseudo hyponatremia, due to hyperglycemia #Suspected sepsis with leukocytosis and lactic acidosis #Morbid obesity #Meth use disorder #Schizophrenia #Hypertensive heart disease #Hyperlipidemia #Medications nonadherence #Elevated LFTs; most likely due to fatty liver Date of Service: May 01, 2024 Billing Provider: HEMAL SHANNON MD Common Visit Codes: 40146-UGD/OBS DISCH DAY >30min BENITEZ SHORE RESIDENT May 01, 2024 13:56 HEMAL SHANNON MD May 02, 2024 11:15
== END 2024-05-01 13:30 | disposition home or self-care (01) | DRG 720 ==
LOC: ER 17:02 → EDBD 17:02 → OVERFLOW 22:44 → CENTRAL 04-29 22:32
PROVIDERS: ADMIT Internal Medicine; ATTEND Internal Medicine
DX: A41.9 Sepsis, unspecified organism (principal); E87.20 Acidosis, unspecified; I11.9 Hypertensive heart disease without heart failure; K76.0 Fatty (change of) liver, not elsewhere classified; E11.65 Type 2 diabetes mellitus with hyperglycemia; N39.0 Urinary tract infection, site not specified; F17.210 Nicotine dependence, cigarettes, uncomplicated; E78.5 Hyperlipidemia, unspecified; F20.9 Schizophrenia, unspecified; E66.01 Morbid (severe) obesity due to excess calories; F15.10 Other stimulant abuse, uncomplicated; E88.810 Metabolic syndrome; Z91.199 Patient's noncompliance with other medical treatment and regimen due to unspecified reason; Z82.49 Family history of ischemic heart disease and other diseases of the circulatory system; Z79.4 Long term (current) use of insulin; Z68.41 Body mass index [BMI] 40.0-44.9, adult
CPT/HCPCS: 36415; 71045; 80053; 80307; 80320; 81001; 82010; 82140; 82962; 83036; 83605; 83735; 83930; 84100; 84443; 85025; 85610; 85730; 87040; 87086; 96365; G0378; J1815

== ENCOUNTER 2024-05-22 15:16 | Inpatient (IN) | payer MEDICAID ==
[~2024-05-22] VITALS: Ht 170.2 cm; Wt 114.0 kg
[~2024-05-22 15:16] MED LIST changes: -ASPI81CH43 PO; +BLOO-200 XX; +INSLANTI SC; -LEVO500T91 PO; +METF-370 PO; +METF-372 PO; -METR-344 PO
--- NOTE | 2024-05-22 15:29 | ED.PDOC ---
History of Present Illness HPI Comments 38-year-old male presents with a chief complaint of abdominal pain x 1 hour. Patients initial complaint to EMS and triage nurse was that he was having abdomen pain x 1 hour. Upon inspection by MD, patient reports that the problem is "my blood sugar was 120 and I didn't know if that was normal, and the library was closed and I couldn't make it home." Patient has non-linear train of thought. Patient appears homeless. Chief Complaint: Abdominal Pain Time Seen by MD: 15:23 Primary Care Provider: Rodger Reviewed Notes: Medications, Allergies Allergies: Coded Allergies: No Known Drug Allergy (Unverified Allergy, Unknown, 08/29/23) Home Meds Active Scripts Metformin Hydrochloride (Metformin Hcl) 500 Mg Tab, 1 TAB PO BID, #60 TAB 3 Refills Prov:BENITEZ SHORE RESIDENT 05/01/24 Insulin Glargine (Lantus) 100 Unit/Ml Inj, 30 UNIT SC DAILY for 30 Days, #1 INJ Prov:BENITEZ SHORE 05/01/24 Blood Glucose Monitoring Suppl (Blood Glucose Monitoring W/Device) 1 Kit Kit, KIT XX DAILY, #1 Prov:HEMAL SHANNON MD 05/01/24 Atorvastatin Calcium (ATORVASTATIN CALCIUM) 20 Mg Tab, 1 TAB PO DAILY, #90 TAB 1 Refill Prov:KAIN CHRISTIANSON MD 11/29/17 Reported Medications Metformin Hydrochloride (Metformin Hcl) 1,000 Mg Tab, 1 TAB PO DAILY, #60 TAB 5 Refills 04/29/24 Information Source: Patient Mode of Arrival: EMS Severity: Moderate Timing: Hours Duration: Since onset Prehospital treatment: None Past Medical History PAST MEDICAL HISTORY: DM, High Lipids, HTN, Thyroid Surgical History: Appendectomy Family History Family History: Family hx of HTN Social History Smoker: Cigarettes Alcohol: Occasionally Drugs: Marijuana, Methamphetamine Lives In: Homeless Constitutional: denies: chills, diaphoresis, fatigue, fever, malaise, sweats, weakness, others EENTM: denies: blurred vision, double vision, ear bleeding, ear discharge, ear drainage, ear pain, ear ringing, eye pain, eye redness, hearing loss, mouth pain, mouth swelling, nasal discharge, nose bleeding, nose congestion, nose pain, photophobia, tearing, throat pain, throat swelling, voice changes, others Respiratory: denies: cough, hemoptysis, orthopnea, SOB at rest, shortness of breath, SOB with excertion, stridor, wheezing, others Cardiovascular: denies: chest pain, dizzy spells, diaphoresis, Dyspnea on exertion, edema, irregular heart beat, left arm pain, lightheadedness, palpitations, PND, syncope, others Gastrointestinal: reports: abdominal pain; denies: abdomen distended, blood streaked bowels, constipated, diarrhea, dysphagia, difficulty swallowing, hematemesis, melena, nausea, poor appetite, poor fluid intake, rectal bleeding, rectal pain, vomiting, others Genitourinary: denies: burning, dysuria, flank pain, frequency, hematuria, incontinence, penile discharge, penile sore, pain, testicle pain, testicle swelling, urgency, others Neurological: denies: dizziness, fainting, headache, left sided numbness, left sided weakness, numbness, paresthesia, pre-existing deficit, right sided numbness, right sided weakness, seizure, speech problems, tingling, tremors, weakness, others Musculoskeletal: denies: back pain, gout, joint pain, joint swelling, muscle pain, muscle stiffness, neck pain, others Integumetry: denies: bruises, change in color, change in hair/nails, dryness, laceration, lesions, lumps, rash, wounds, others Allergic/Immunocompromised: denies: Difficulty Healing, Frequent Infections, Hives, Itching, others Hematologic/Lymphatic: denies: anemia, blood clots, easy bleeding, easy bruising, swollen glands, others Endocrine: denies: excessive hunger, excessive sweating, excessive thirst, excessive urination, flushing, intolerance to cold, intolerance to heat, unexplained weight gain, unexplained weight loss, others Psychiatric: denies: anxiety, bipolar disorder, depression, hopeless, panic disorder, schizophrenia, sleepless, suicidal, others All Other Systems: Reviewed and Negative Physical Exam General Appearance: Moderate Distress, Normal HEENT: Normal ENT Inspection, Pharynx Normal, TMs Normal Neck: Full Range of Motion, Non-Tender, Normal, Normal Inspection Respiratory: Chest Non-Tender, Lungs Clear, No Accessory Muscle Use, No Respiratory Distress, Normal Breath Sounds Cardiovascular: No Edema, No JVD, No Murmur, No Gallop, Normal Peripheral Pulses, Regular Rate/Rhythm Breast Exam: Deferred Gastrointestinal: No Organomegaly, Non Tender, No Pulsatile Mass, Normal Bowel Sounds, Soft Genitalia: Deferred Pelvic: Deferred Rectal: Deferred Extremities: No calf tenderness, Normal capillary refill, Normal inspection, Normal range of motion, Non-tender, No pedal edema Musculoskeletal : Apperance: Normal Neurologic: Alert, backhaul driver II-XII nml as Tested, No Motor Deficits, Normal Affect, Normal Mood, No Sensory Deficits Cerebellar Function: Normal Reflexes: Normal Skin: Dry, Normal Color, Warm Peripheral Pulses: 3+ Radial (R), 3+ Radial (L) Lymphatic: No Adenopathy Was a procedure done? Was a procedure done?: No Differential Dx Considerations may include: Hyperglycemia Electrolyte imbalance X-Ray, Labs, Meds, VS Vital Signs Date Time Temp Pulse Resp B/P (MAP) Pulse Ox O2 Delivery O2 Flow Rate FiO2 05/22/24 15:17 98.2 96 18 115/85 (95) 95 Lab Test 05/22/24 15:51 Range/Units White Blood Count 12.3 H 4.4-10.8 10^3/uL Red Blood Count 5.14 4.5-5.90 10^6/uL Hemoglobin 15.8 13.5-17.5 g/dL Hematocrit 46.6 41.0-53.0 % Mean Corpuscular Volume 90.5 80.0-100.0 fL Mean Corpuscular Hemoglobin 30.7 28.0-32.0 pg Mean Corpuscular Hemoglobin Concent 33.9 32.0-36.0 g/dL Red Cell Distribution Width 13.3 11.8-14.3 % Platelet Count 270 140-450 10^3/uL Mean Platelet Volume 7.7 6.9-10.8 fL Neutrophils (%) (Auto) 75.1 37.0-80.0 % Lymphocytes (%) (Auto) 15.4 10.0-50.0 % Monocytes (%) (Auto) 8.4 0.0-12.0 % Eosinophils (%) (Auto) 0.8 0.0-7.0 % Basophils (%) (Auto) 0.3 0.0-2.0 % Neutrophils # (Auto) 9.2 H 1.6-8.6 10 ^3/uL Lymphocytes # (Auto) 1.9 0.4-5.4 10 ^3/uL Monocytes # (Auto) 1.0 0-1.3 10 ^3/uL Eosinophils # (Auto) 0.1 0-0.8 10 ^3/uL Basophils # (Auto) 0 0-0.2 10 ^3/uL Nucleated Red Blood Cells 0.1 % Sodium Level 137 136-145 mmol/L Potassium Level 3.8 3.5-5.1 mmol/L Chloride Level 101 98-107 mmol/L Carbon Dioxide Level 27 20-31 mmol/L Anion Gap 9 5-15 Blood Urea Nitrogen 9 9-23 mg/dL Creatinine 0.75 0.700-1.30 mg/dL Glomerular Filtration Rate Calc 119 >90 mL/min BUN/Creatinine Ratio 12.0 10.0-20.0 Serum Glucose 140 H 74-106 mg/dL Calcium Level 10.0 8.7-10.4 mg/dL Patient alert. Complaining of generalized symptoms. Was just seen recently in this ER. Vitals stable. Answering questions. Abdomen is soft nontender. No sign of distress. No leg swelling. No shortness a breath. No chest pain. No nausea vomiting. WBC slightly elevated. Possibly from dehydration. He was told to drink plenty of fluids. Was given prescription of amoxicillin antibiotic for possible bronchitis. Explained to the patient. Was told to follow up with his primary care physician. Was told to come back if there is any problem. Time of 1ST Reevaluation: 15:53 Reevaluation 1ST: Improved Patient Education/Counseling: Diagnosis, Treatment, Prognosis Family Education/Counseling: Diagnosis, Treatment, Prognosis Departure 1 Departure Time of Disposition: 15:55 Impression: Primary Impression: Uncontrolled diabetes mellitus Qualified Codes: E13.65 - Other specified diabetes mellitus with hyperglycemia Additional Impression: Bronchitis Disposition: 01 HOME / SELF CARE / HOMELESS Condition: Good e-Prescriptions Amoxicillin Trihydrate (Amoxicillin) 500 Mg Cap 1 CAP PO TID for 7 Days, #21 CAP Prov: KT TRAVIS MD 05/22/24 Discharged With: Self Critical Care Note Critical Care Time?: No Stability Stability form required: No Heart Score Heart Score: Heart Score Response (Comments) Value History N/A 0 EKG N/A 0 Age N/A 0 Risk Factors N/A 0 Troponin N/A 0 Total 0 I personally scribed for KT TRAVIS MD ([email or web address]) on 05/22/24 at 15:29. Electronically submitted by Reyes Quinn ([email or web address]). KT TRAVIS MD May 22, 2024 15:29
[2024-05-22 16:08] LABS: Basophils # (auto) 0 10 ^3/uL (0-0.2); Basophils % (auto) 0.3 % (0.0-2.0); Eosinophils # (auto) 0.1 10 ^3/uL (0-0.8); Eosinophils % (auto) 0.8 % (0.0-7.0); Hematocrit 46.6 % (41.0-53.0); Hemoglobin 15.8 g/dL (13.5-17.5); Lymphocytes # (auto) 1.9 10 ^3/uL (0.4-5.4); Lymphocytes % (auto) 15.4 % (10.0-50.0); Mean Corpuscular Hemoglobin 30.7 pg (28.0-32.0); Mean Corpuscular Hgb Conc. 33.9 g/dL (32.0-36.0); Mean Corpuscular Volume 90.5 fL (80.0-100.0); Monocytes % (auto) 8.4 % (0.0-12.0); Neutrophils # (auto) 9.2 10 ^3/uL (1.6-8.6); Neutrophils % (auto) 75.1 % (37.0-80.0); Nucleated Red Blood Cells % 0.1 %; Platelet Count (auto) 270 10^3/uL (140-450); Red Blood Cells 5.14 10^6/uL (4.5-5.90); Red Cell Distribution Width 13.3 % (11.8-14.3); White Blood Cell 12.3 10^3/uL (4.4-10.8)
[2024-05-22 16:22] LABS: Chloride 101 mmol/L (98-107); Potassium 3.8 mmol/L (3.5-5.1); Sodium 137 mmol/L (136-145)
[2024-05-22 16:23] LABS: Anion Gap 9 (5-15); Carbon Dioxide 27 mmol/L (20-31)
[2024-05-22 16:30] LABS: Glucose 140 mg/dL (74-106)
[2024-05-22 16:31] LABS: Blood Urea Nitrogen 9 mg/dL (9-23)
[2024-05-22] MEDS ORDERED: AMOX500C2 PO (17:08)
[2024-05-22] MEDS ORDERED: SODIUM CHLORIDE 0.9% 1,000 ML IV SCH (21:30)
[2024-05-22] MEDS ORDERED: ACETAMINOPHEN 325 MG TAB PO PRN (21:30)
[2024-05-22] MEDS ORDERED: NITROGLYCERIN 0.4 MG SL TAB SL PRN (21:30)
[2024-05-22 22:46] LABS: Basophils # (auto) 0 10 ^3/uL (0-0.2); Basophils % (auto) 0.2 % (0.0-2.0); Eosinophils # (auto) 0.1 10 ^3/uL (0-0.8); Eosinophils % (auto) 0.7 % (0.0-7.0); Hematocrit 46.7 % (41.0-53.0); Hemoglobin 15.8 g/dL (13.5-17.5); Lymphocytes # (auto) 0.7 10 ^3/uL (0.4-5.4); Lymphocytes % (auto) 8.9 % (10.0-50.0); Mean Corpuscular Hemoglobin 30.7 pg (28.0-32.0); Mean Corpuscular Hgb Conc. 33.9 g/dL (32.0-36.0); Mean Corpuscular Volume 90.7 fL (80.0-100.0); Monocytes # (auto) 0.7 10 ^3/uL (0-1.3); Monocytes % (auto) 9.1 % (0.0-12.0); Neutrophils # (auto) 6.5 10 ^3/uL (1.6-8.6); Neutrophils % (auto) 81.1 % (37.0-80.0); Nucleated Red Blood Cells % 0.1 %; Platelet Count (auto) 234 10^3/uL (140-450); Red Blood Cells 5.15 10^6/uL (4.5-5.90); Red Cell Distribution Width 13.3 % (11.8-14.3)
[2024-05-22 23:09] LABS: Albumin 4.6 g/dL (3.2-4.8); Alkaline Phosphatase 76 U/L (46-116); Anion Gap 8 (5-15); Aspartate Aminotransferase 20 U/L (13-40); BUN/Creatinine Ratio 11.1 (10.0-20.0); Blood Urea Nitrogen 9 mg/dL (9-23); Calcium 9.8 mg/dL (8.7-10.4); Carbon Dioxide 27 mmol/L (20-31); Chloride 101 mmol/L (98-107); Magnesium 1.6 mg/dL (1.6-2.6); Potassium 4.5 mmol/L (3.5-5.1); Sodium 136 mmol/L (136-145)
[2024-05-22 23:10] LABS: Bilirubin, Total 0.7 mg/dL (0.2-1.0); Total Protein 6.8 g/dL (5.7-8.2)
[2024-05-22 23:13] LABS: Alanine Aminotransferase 58 U/L (7-40); Blood Alcohol < 3.0 mg/dL (<10); Glucose 203 mg/dL (74-106)
[2024-05-22] MEDS ORDERED: DEXTROSE (50%) 50ML SYRG IV PRN (23:30)
--- NOTE | 2024-05-22 23:32 | DVHHPRES ---
History of Present Illness Resident Creating Document: HIPOLITO LOERA RESIDENT History of Present Illness SAUL RODRIGUEZ is a 38-year-old male poor historian with a significant PMH of type 2 DM, HTN, HLD, thyroid presented to the ED with the chief complaints of intermittent abdominal pain since morning. Patient reported he recently discharged from this facility after being treated for hyperglycemia. He has been checking his blood sugars every day which is high and low sometimes. Patient has vodka drink yesterday. Today moaning patient also reported mild diarrhea. On my assessment denies fever, constipation, nausea, vomiting and other acute associated symptoms. PMHx: Type 2 DM, HTN, DLD, thyroid disease (did not recall hypo or hyper but was during the childhood), schizophrenia PSHx: Not Significant Family history: Not Significant Social history: Lives with the mom at home, current smoker, occasional alcohol abuse, former methamphetamine abuse, denies any other drug use. Home medication: Metformin 500mg daily, per patient he was prescribed insulin Lantus did not recall dose Allergic history: No known allergies Review of Systems Constitutional: Yes: Weakness Eyes: No: Pain, Vision change, Conjunctivae inflammation, Eyelid inflammation, Other, Redness ENT: No: Ear pain, Ear discharge, Nose pain, Nose discharge, Nose congestion, Mouth pain, Mouth swelling, Throat pain, Throat swelling, Other Respiratory: No: Cough, Dry, Shortness of breath, SOB with excertion, Wheezing, Hemoptysis, Pleuritic Pain, Sputum, Wheezing, Other Cardiovascular: No: Chest Pain, Palpitations, Orthopnea, Paroxysmal Noc. Dyspnea, Edema, Lt Headedness, Other Gastrointestinal: Abdominal Pain, Diarrhea Genitourinary: No Dysuria, No Frequency, No Incontinence, No Hematuria, No Retention, No Other Musculoskeletal: No: other, neck pain, shoulder pain, arm pain, back pain, hand pain, leg pain, foot pain Skin: No: Rash, Lesions, Jaundice, Bruising, Other Neurological: No: Weakness, Numbness, Incoordination, Change in speech, Confusion, Seizures, Other Allergies: Coded Allergies: No Known Drug Allergy (Unverified Allergy, Unknown, 08/29/23) Medications Current Medications Medications Dose Ordered Sig/Abhishek Route Start Time Stop Time Status Last Admin Dose Admin Sodium Chloride 10 ml Q8HR IV 05/22/24 22:00 Ondansetron HCl 4 mg Q4HP PRN IV 05/22/24 21:30 Enoxaparin Sodium 40 mg DAILY SC 05/23/24 10:00 Acetaminophen 650 mg Q6HP PRN PO 05/22/24 21:30 Nitroglycerin 0.4 mg Q5MINP PRN SL 05/22/24 21:30 Morphine Sulfate 2 mg Q30M PRN IV 05/22/24 21:30 Sodium Chloride 1,000 ml @ 100 mls/hr Q10H IV 05/22/24 23:30 Diagnostic Test (Pha) 1 strip ACHS 05/23/24 07:00 Insulin Human Regular HS SC 05/23/24 22:00 Insulin Human Regular AC SC 05/23/24 07:00 Dextrose 50 ml UD PRN IV 05/22/24 23:30 Exam Vital Signs Vital Signs Date Time Temp Pulse Resp B/P (MAP) Pulse Ox O2 Delivery O2 Flow Rate FiO2 05/22/24 15:17 98.2 96 18 115/85 (95) 95 Exam Pt is lying on bed General Appearance: Drowsy Oriented X3, Cooperative, mild distress HEENT: Atraumatic, Mucous membranes dry Respiratory: Clear to auscultation, Normal air movement, No added sounds Cardiovascular: Regular rate, Normal S1, Normal S2, No murmurs Abdominal: Mild epigastric tenderness. Active bowel sounds, Soft, no distention, no tenderness Extremities: No edema, Normal pulses, No tenderness/swelling Skin: No Significant rash Neuro: Normal speech, sensorimotor deficits none Psych/Mental Status: Mental status NL, Mood NL Nurse was there as sharperone during examination Labs/Xrays Labs Test 05/22/24 22:54 05/22/24 22:24 05/22/24 15:51 Range/Units White Blood Count 8.0 # 4.4-10.8 10^3/uL Red Blood Count 5.15 4.5-5.90 10^6/uL Hemoglobin 15.8 13.5-17.5 g/dL Hematocrit 46.7 41.0-53.0 % Mean Corpuscular Volume 90.7 80.0-100.0 fL Mean Corpuscular Hemoglobin 30.7 28.0-32.0 pg Mean Corpuscular Hemoglobin Concent 33.9 32.0-36.0 g/dL Red Cell Distribution Width 13.3 11.8-14.3 % Platelet Count 234 140-450 10^3/uL Mean Platelet Volume 7.6 6.9-10.8 fL Neutrophils (%) (Auto) 81.1 H 37.0-80.0 % Lymphocytes (%) (Auto) 8.9 L 10.0-50.0 % Monocytes (%) (Auto) 9.1 0.0-12.0 % Eosinophils (%) (Auto) 0.7 0.0-7.0 % Basophils (%) (Auto) 0.2 0.0-2.0 % Neutrophils # (Auto) 6.5 1.6-8.6 10 ^3/uL Lymphocytes # (Auto) 0.7 0.4-5.4 10 ^3/uL Monocytes # (Auto) 0.7 0-1.3 10 ^3/uL Eosinophils # (Auto) 0.1 0-0.8 10 ^3/uL Basophils # (Auto) 0 0-0.2 10 ^3/uL Nucleated Red Blood Cells 0.1 % D-Dimer, Quantitative 0.30 0.0-0.49 mg/L FEU Sodium Level 136 136-145 mmol/L Potassium Level 4.5 3.5-5.1 mmol/L Chloride Level 101 98-107 mmol/L Carbon Dioxide Level 27 20-31 mmol/L Anion Gap 8 5-15 Blood Urea Nitrogen 9 9-23 mg/dL Creatinine 0.81 0.700-1.30 mg/dL Glomerular Filtration Rate Calc 116 >90 mL/min BUN/Creatinine Ratio 11.1 10.0-20.0 Serum Glucose 203 H 74-106 mg/dL Lactic Acid Level 1.1 0.4-2.0 mmol/L Calcium Level 9.8 8.7-10.4 mg/dL Magnesium Level 1.6 1.6-2.6 mg/dL Total Bilirubin 0.7 0.2-1.0 mg/dL Aspartate Amino Transferase (AST) 20 13-40 U/L Alanine Aminotransferase (ALT) 58 H 7-40 U/L Alkaline Phosphatase 76 46-116 U/L Ammonia < 10 L 11-32 umol/L Total Protein 6.8 5.7-8.2 g/dL Albumin 4.6 3.2-4.8 g/dL Plasma/Serum Blood Alcohol < 3.0 <10 mg/dL B-Type Natriuretic Peptide 25.88 0-100 pg/mL Thyroid Stimulating Hormone (TSH) 1.90 0.55-4.78 uIU/mL Assessment/Plan Assessment/Plan # acute abdominal pain # rule out pancreatitis vs PUD # mild dehydration -ordered lipase -ordered CT abdominal pelvis, pending -ordered Protonix -IVF #? Acute toxic or metabolic encephalopathy -head CT pending # Uncontrolled type 2 diabetes - Accu-Cheks and moderate ISS # Metabolic syndrome # Morbid obesity with a BMI 39.4 -nutritional counseling # Meth use disorder -counseled regarding cessation for more than 17 minutes # Schizophrenia -monitor for symptoms # Hypertension -monitor for now # Hyperlipidemia # Medications nonadherence PUD PPX Protonix VTE PPX: Lovenox Diet: Cardiac and diabetic diet Goals of care discussed with the patient for more than 27 minutes: Full code status Case management discussed with Dr. Myles, patient and nurse Plan discussed with: Patient My Orders Orders - HIPOLITO LOERA RESIDENT Procedure Category Date Status Time Admit ADMIT 05/22/24 Transmitted 21:18 Allergies DELANEY 05/22/24 In Process 21:18 Code Status CODE 05/22/24 Transmitted 21:18 Sodium Chloride Lock PHA 05/22/24 In Process (Saline Lock Ns) 22:00 Ondansetron Hcl PHA 05/22/24 In Process (Zofran) 21:30 Enoxaparin Sodium PHA 05/23/24 In Process (Lovenox) 10:00 Complete Blood Count LAB 05/23/24 Verified 04:00 Comprehensive LAB 05/23/24 Verified Metabolic Panel 04:00 Cardiac DIET 05/23/24 Transmitted Diet-2gna,Lofat,Lochol Breakfast Condition: Stable DELANEY 05/22/24 In Process 21:18 Acetaminophen Tablet PHA 05/22/24 In Process (Tylenol Tablet) 21:30 Nitroglycerin PHA 05/22/24 In Process Sublingual (Ntrostat 21:30 Morphine Sulfate PHA 05/22/24 In Process Injection 21:30 Oxygen By Nasal RT 05/22/24 Transmitted Cannula 21:18 Stat Ekg For Chest DELANEY 05/22/24 In Process Pain 21:18 Notify Of Changes DELANEY 05/22/24 In Process From Base 21:18 Rapid Influenza A&B LAB 05/22/24 Logged 22:04 Urinalysis LAB 05/22/24 Logged 22:04 Drug Screen LAB 05/22/24 Logged 22:04 Covid19 Antigen [facility] LAB 05/22/24 Logged Lipase LAB 05/22/24 In Process 23:07 Sodium Chloride 0.9% PHA 05/22/24 In Process 23:30 Ct Ab Pel Wo Con-No CT 05/22/24 Logged Oral Or Iv 23:18 Sodium Chloride 0.9% PHA 05/22/24 In Process 23:30 Glucose Blood PHA 05/23/24 In Process (Accu-Chek Comfort 07:00 Insulin R (Human) PHA 05/23/24 In Process (Insulin R) 22:00 Insulin R (Human) PHA 05/23/24 In Process (Insulin R) 07:00 Dextrose 50% Syringe PHA 05/22/24 In Process 23:30 Pantoprazole PHA 05/23/24 Transmitted (Protonix) 10:00 Date of Service: May 22, 2024 Billing Provider: SPENCER MYLES MD Common Visit Codes: [id number] INP/OBS CARE (HIGH) HIPOLITO LOERA RESIDENT May 22, 2024 23:32 SPENCER MYLES MD May 23, 2024 08:42
--- NOTE | 2024-05-23 01:32 | DVH ---
Exam: CT CT AB PEL WO CON-NO ORAL OR IV History: abdominal pain Comparison Study: CT CT AB PEL WO CON-NO ORAL OR IV on DOS: 08/29/23, CT ABD PELVIS WO CONTRAST on DO S: 10/31/21 Technique: Multidetector spiral CT of the abdomen was performed from lung bases to pubic symphysis. Imaging was performed without IV contrast. Axial, coronal and sagittal multiplanar reformats were ob tained from the axial data set by the technologist. Radiation Dose : 1. Abdomen/Pelvis: CTDIvol 22.64 mGy, DLP 1438.87 mGy*cm. Findings: Evaluation of solid organs is limited due to lack of intravenous contrast use. Lung Bases: No abnormality demonstrated. Liver: No abnormality demonstrated. Gallbladder and Biliary Tree: No abnormality demonstrated. Spleen: No abnormality demonstrated. Pancreas: No abnormality demonstrated. Adrenal Glands: No abnormality demonstrated. Kidneys: No abnormality demonstrated. No evidence of renal calculus or hydroureteronephrosis. Bladder: Poorly distended. Bowel: Stomach appears grossly unremarkable. No dilated or thick walled loops of large or small bowel noted. Appendix appears unremarkable. Ascites: Absent Lymphadenopathy: No evidence of lymphadenopathy. Abdominal Wall and Mesentery: Unremarkable. Vasculature: Unremarkable given lack of intravenous contrast. Pelvic Organs: Unremarkable Musculoskeletal: No bony lesions or fracture. IMPRESSION: 1. No acute abdominal or pelvic findings. Radiation optimization: All CT scans at this facility use at least one of these dose optimization kye hniques: automated exposure control mA and/or kV adjustment per patient size (includes targeted exam s where dose is matched to clinical indication) or iterative reconstruction.
[2024-05-23 02:00] VITALS: PULSE 96; RESP 20; O2SAT 95
[2024-05-23] MEDS: SODIUM CHLORIDE 0.9% 1,000 ML IV ONE (02:46)
[2024-05-23] MEDS: SODIUM CHLOR 0.9% PF (SALINE LOCK) 10ML VIAL/SYR IV SCH (02:46)
[2024-05-23] MEDS: ONDANSETRON HCL 4 MG/2 ML VIAL IV PRN (02:47)
[2024-05-23] MEDS: SODIUM CHLORIDE 0.9% 1,000 ML IV SCH (02:47)
[2024-05-23] MEDS: MORPHINE SULFATE INJ 2 MG/ml SYRG IV PRN (02:48)
[2024-05-23 04:11] LABS: COVID19 ANTIGEN SOFIA FIA NEGATIVE (NEGATIVE); Rapid Influenza A Negative (Negative); Rapid Influenza B Negative (Negative)
[2024-05-23 04:19] LABS: Basophils # (auto) 0 10 ^3/uL (0-0.2); Basophils % (auto) 0.2 % (0.0-2.0); Eosinophils # (auto) 0.1 10 ^3/uL (0-0.8); Eosinophils % (auto) 0.9 % (0.0-7.0); Hematocrit 45.6 % (41.0-53.0); Hemoglobin 15.4 g/dL (13.5-17.5); Lymphocytes # (auto) 1.1 10 ^3/uL (0.4-5.4); Lymphocytes % (auto) 14.7 % (10.0-50.0); Mean Corpuscular Hgb Conc. 33.7 g/dL (32.0-36.0); Monocytes # (auto) 0.7 10 ^3/uL (0-1.3); Neutrophils # (auto) 5.5 10 ^3/uL (1.6-8.6); Neutrophils % (auto) 74.2 % (37.0-80.0); Platelet Count (auto) 242 10^3/uL (140-450); Red Blood Cells 4.96 10^6/uL (4.5-5.90); Red Cell Distribution Width 13.3 % (11.8-14.3); White Blood Cell 7.4 10^3/uL (4.4-10.8)
[2024-05-23 04:37] LABS: Albumin 4.2 g/dL (3.2-4.8); Alkaline Phosphatase 68 U/L (46-116); Anion Gap 8 (5-15); Aspartate Aminotransferase 18 U/L (13-40); BUN/Creatinine Ratio 11.4 (10.0-20.0); Bilirubin, Total 0.6 mg/dL (0.2-1.0); Calcium 8.9 mg/dL (8.7-10.4); Carbon Dioxide 22 mmol/L (20-31); Chloride 105 mmol/L (98-107)
[2024-05-23 04:38] LABS: Total Protein 6.3 g/dL (5.7-8.2)
[2024-05-23 04:39] LABS: Alanine Aminotransferase 50 U/L (7-40); Blood Urea Nitrogen 8 mg/dL (9-23); Glucose 190 mg/dL (74-106); Sodium 135 mmol/L (136-145)
[2024-05-23] MEDS: ACCU-CHEK COMFORT CURVE STRIP VI SCH (07:00)
[2024-05-23 08:01] VITALS: TEMP 97.3
[2024-05-23] MEDS: InsuLIN REG 1unit/0.01ml Soln (100units/ml) SC SCH (08:20)
--- NOTE | 2024-05-23 08:53 | DVH ---
EXAM: CT HEAD WITHOUT CONTRAST INDICATION: altered TECHNIQUE: CT of the head without intravenous contrast. Radiation Dose Information: CT Dose: CTDI volume is 65.18 mGy. Dose-length product is 1175.01 mGy*cm The dose indicators for CT are the volume Computed Tomography (CT) Dose Index (CTDIvol) and the Dose Length Product (DLP), and are measured in units of mGy and mGy-cm, respectively. These indicators are not patient dose, but values generated from the CT scanner acquisition factors. The report includes radiation exposure data for exposures received during this examination. COMPARISON: None FINDINGS: There is no evidence of acute intracranial hemorrhage, extra-axial collection, mass effect, midline s hift, herniation or hydrocephalus. The ventricles, sulci and cisterns are age appropriate. The baeza-white differentiation is intact. Patchy periventricular and subcortical white matter hypoattenuation is nonspecific but may be related to small vessel ischemic disease. Right maxillary sinusitis. The surrounding soft tissues and osseous structures are unremarkable. IMPRESSION: No acute intracranial abnormality.
[2024-05-23] MEDS: PANTOPRAZOLE 40 MG/10 ML VIAL INJ IV SCH (10:05)
[2024-05-23] MEDS: ENOXAPARIN SOD 40 MG/0.4 ML SYRINGE SC SCH (10:05)
--- NOTE | 2024-05-23 12:10 | DVHDSRES ---
Discharge Summary Date of Admission Resident Creating Document: HIPOLITO LOERA RESIDENT May 22, 2024 at 21:18 Date of Discharge: May 23, 2024 Admitting Diagnosis Suspected SIRS likely due to acute gastroenteritis Labs/Diagnostic Data: Laboratory Results Test 05/23/24 06:40 05/23/24 03:40 05/23/24 02:57 05/22/24 22:54 Plasma/Serum Blood Alcohol < 3.0 mg/dL (<10) White Blood Count 7.4 10^3/uL (4.4-10.8) Red Blood Count 4.96 10^6/uL (4.5-5.90) Hemoglobin 15.4 g/dL (13.5-17.5) Hematocrit 45.6 % (41.0-53.0) Mean Corpuscular Volume 92.0 fL (80.0-100.0) Mean Corpuscular Hemoglobin 31.0 pg (28.0-32.0) Mean Corpuscular Hemoglobin Concent 33.7 g/dL (32.0-36.0) Red Cell Distribution Width 13.3 % (11.8-14.3) Platelet Count 242 10^3/uL (140-450) Mean Platelet Volume 7.5 fL (6.9-10.8) Neutrophils (%) (Auto) 74.2 % (37.0-80.0) Lymphocytes (%) (Auto) 14.7 % (10.0-50.0) Monocytes (%) (Auto) 10.0 % (0.0-12.0) Eosinophils (%) (Auto) 0.9 % (0.0-7.0) Basophils (%) (Auto) 0.2 % (0.0-2.0) Neutrophils # (Auto) 5.5 10 ^3/uL (1.6-8.6) Lymphocytes # (Auto) 1.1 10 ^3/uL (0.4-5.4) Monocytes # (Auto) 0.7 10 ^3/uL (0-1.3) Eosinophils # (Auto) 0.1 10 ^3/uL (0-0.8) Basophils # (Auto) 0 10 ^3/uL (0-0.2) Nucleated Red Blood Cells 0.0 % Sodium Level 135 mmol/L (136-145) Potassium Level 4.0 mmol/L (3.5-5.1) Chloride Level 105 mmol/L (98-107) Carbon Dioxide Level 22 mmol/L (20-31) Anion Gap 8 (5-15) Blood Urea Nitrogen 8 mg/dL (9-23) Creatinine 0.70 mg/dL (0.700-1.30) Glomerular Filtration Rate Calc 122 mL/min (>90) BUN/Creatinine Ratio 11.4 (10.0-20.0) Serum Glucose 190 mg/dL (74-106) Calcium Level 8.9 mg/dL (8.7-10.4) Total Bilirubin 0.6 mg/dL (0.2-1.0) Aspartate Amino Transferase (AST) 18 U/L (13-40) Alanine Aminotransferase (ALT) 50 U/L (7-40) Alkaline Phosphatase 68 U/L (46-116) Total Protein 6.3 g/dL (5.7-8.2) Albumin 4.2 g/dL (3.2-4.8) Influenza Type A Antigen Negative (Negative) Influenza Type B Antigen Negative (Negative) SARS-CoV-2 Antigen (Rapid) Negative (NEGATIVE) Lipase 29 U/L (12-53) Test 05/22/24 22:24 05/22/24 15:51 D-Dimer, Quantitative 0.30 mg/L FEU (0.0-0.49) Lactic Acid Level 1.1 mmol/L (0.4-2.0) Magnesium Level 1.6 mg/dL (1.6-2.6) Ammonia < 10 umol/L (11-32) B-Type Natriuretic Peptide 25.88 pg/mL (0-100) Thyroid Stimulating Hormone (TSH) 1.90 uIU/mL (0.55-4.78) Other Laboratory Tests 05/23/24 03:40 Brief Hx & Hospital Course: SAUL SIDDIQUI is a 38-year-old male poor historian with a significant PMH of type 2 DM, HTN, HLD, thyroid presented to the ED with the chief complaints of intermittent abdominal pain since morning. Patient reported he recently discharged from this facility after being treated for hyperglycemia. He has been checking his blood sugars every day which is high and low sometimes. Patient has vodka drink yesterday. Today moaning patient also reported mild diarrhea. On my assessment denies fever, constipation, nausea, vomiting and other acute associated symptoms. Hospital course-patient is 38 years old male with a history of type 2 diabetes mellitus, hyperlipidemia, hypertension, thyroid disease came with a complaint of abdominal pain and nausea and vomiting. Patient was admitted at the hospital due to intractable abdominal pain and nausea vomiting likely due to acute gastroenteritis. Significant blood lab workup revealed leukocytosis with WBC 12.3, blood sugar 203. CT abdomen- No acute abdominal or pelvic findings. Treated conservatively and symptoms improved. Patient was adamant about going home. Patient was discharged with Zofran 4 mg q.6h p.r.n.. Patient was hemodynamically stable on discharge. Patient was advised to follow up with the primary care physician in 1 week. Patient was also advised about the effect of substance abuse on health. Patient verbalized understanding. Diagnosis Intractable p.o. intolerance likely due to acute gastroenteritis Acute gastroenteritis likely viral Intractable abdominal pain likely due to acute gastroenteritis SIRS likely due to above Leukocytosis likely reactive-resolved Neutrophilia resolved Uncontrolled diabetes mellitus type 2 with hyperglycemia Hypertension Hyperlipidemia Thyroid disease Schizophrenia Discharge plan Zofran 4 mg by mouth every 6 hours as needed Please resume home medications Please follow up with the primary care physician in 1 week Please avoid dehydration Please be compliant with the medications Patient was counseled about the effect of substance abuse on health Operations or Procedures [place] [id number] Ph: [phone] DIAGNOSTIC IMAGING Diagnostic Imaging Report : [id number] Signed PATIENT: SAUL RODRIGUEZ ACCT: [id number] UNIT: [id number] : 1985 LOC: OVERFLOW ROOM / BED: [facility] / A AGE / SEX: 38 / M ADM STATUS: ADM IN SERVICE [id number] ORDERING PHYSICIAN: HIPOLITO LOERA RESIDENT PROCEDURE(s): ABPL - CT AB PEL WO CON-NO ORAL OR IV REASON: abdominal pain ORDER NUMBER(s): [id number], ACCESSION NUMBER(s): [id number] Exam: CT CT AB PEL WO CON-NO ORAL OR IV History: abdominal pain Comparison Study: CT CT AB PEL WO CON-NO ORAL OR IV on DOS: 08/29/23, CT ABD PELVIS WO CONTRAST on DOS: 10/31/21 Technique: Multidetector spiral CT of the abdomen was performed from lung bases to pubic symphysis. Imaging was performed without IV contrast. Axial, coronal and sagittal multiplanar reformats were obtained from the axial data set by the technologist. Radiation Dose : 1. Abdomen/Pelvis: CTDIvol 22.64 mGy, DLP 1438.87 mGy*cm. Findings: Evaluation of solid organs is limited due to lack of intravenous contrast use. Lung Bases: No abnormality demonstrated. Liver: No abnormality demonstrated. Gallbladder and Biliary Tree: No abnormality demonstrated. Spleen: No abnormality demonstrated. Pancreas: No abnormality demonstrated. Adrenal Glands: No abnormality demonstrated. Kidneys: No abnormality demonstrated. No evidence of renal calculus or hydroureteronephrosis. Bladder: Poorly distended. Bowel: Stomach appears grossly unremarkable. No dilated or thick walled loops of large or small bowel noted. Appendix appears unremarkable. Ascites: Absent Lymphadenopathy: No evidence of lymphadenopathy. Abdominal Wall and Mesentery: Unremarkable. Vasculature: Unremarkable given lack of intravenous contrast. Pelvic Organs: Unremarkable Musculoskeletal: No bony lesions or fracture. IMPRESSION: 1. No acute abdominal or pelvic findings. Radiation optimization: All CT scans at this facility use at least one of these dose optimization techniques: automated exposure control mA and/or kV adjustment per patient size (includes targeted exams where dose is matched to clinical indication) or iterative reconstruction. ATED BY: RUPERT OSPINA MD DICTATED DATE/TIME: 05/23/24128 SIGNED BY: RUPERT OSPINA MD SIGNED DATE/TIME: 05/23/24128 CC: Condition at Discharge: Stable Final Diagnosis/Problems List Intractable p.o. intolerance likely due to acute gastroenteritis Acute gastroenteritis likely viral Intractable abdominal pain likely due to acute gastroenteritis SIRS likely due to above Leukocytosis likely reactive-resolved Neutrophilia resolved Uncontrolled diabetes mellitus type 2 with hyperglycemia Hypertension Hyperlipidemia Thyroid disease Schizophrenia Discharge Disposition: Home Discharge Instruct/Medications Diet: Consistent carbohydrate Activity: No Restrictions, As Tolerated Follow Up/Referral: Please follow up with the primary care physician in 1 week Please avoid dehydration Please be compliant with the medications Patient was counseled about the effect of substance abuse on health Medications: Zofran 4 mg by mouth every 6 hours as needed FOR 5 DAYS Please resume home medications Please follow up with the primary care physician in 1 week Please avoid dehydration Please be compliant with the medications Patient was counseled about the effect of substance abuse on health Discharge Statement: "Patient was advised to return to the ER or call 911 if any headaches, dizziness, shortness of breath, chest pain, abdominal pain, bleeding, fevers, or worsening of medical condition. Patient was counseled about treatment plan, medications, possible side effects, patientverbalized understanding. All questions were answered to the best of my ability. This discharge took greater then 30 minutes in planning, reviewing documentation, counseling the patient, and discussing with other team members." ASSESSMENT ASSESSMENT Assessment SARs likely due to Acute gastroenteritis TIMOTEO RIZZO RESIDENT May 23, 2024 12:10
[2024-05-23] MEDS ORDERED: ZOFR4T PO (12:11)
[2024-05-23 12:38] VITALS: BP 101/70; PULSE 80; RESP 16; O2SAT 95
[2024-05-23] MEDS ORDERED: InsuLIN REG 1unit/0.01ml Soln (100units/ml) SC SCH (22:00)
== END 2024-05-23 14:18 | disposition home or self-care (01) | DRG 249 ==
LOC: EDBD 15:16 → ER 15:16 → OVERFLOW 21:18
PROVIDERS: ADMIT Student in an Organized Health Care Education/Training Program; ATTEND Student in an Organized Health Care Education/Training Program
DX: A08.4 Viral intestinal infection, unspecified (principal); R65.10 Systemic inflammatory response syndrome (SIRS) of non-infectious origin without acute organ dysfunction; E11.65 Type 2 diabetes mellitus with hyperglycemia; E07.9 Disorder of thyroid, unspecified; D72.828 Other elevated white blood cell count; E66.01 Morbid (severe) obesity due to excess calories; I10 Essential (primary) hypertension; E78.5 Hyperlipidemia, unspecified; F20.9 Schizophrenia, unspecified; Z20.822 Contact with and (suspected) exposure to COVID-19; F17.210 Nicotine dependence, cigarettes, uncomplicated; J40 Bronchitis, not specified as acute or chronic; E86.0 Dehydration; E88.810 Metabolic syndrome; F15.90 Other stimulant use, unspecified, uncomplicated; Z59.00 Homelessness unspecified; Z82.49 Family history of ischemic heart disease and other diseases of the circulatory system; Z68.39 Body mass index [BMI] 39.0-39.9, adult; Z91.148 Patient's other noncompliance with medication regimen for other reason
CPT/HCPCS: 36415; 70450; 74176; 80048; 80053; 80320; 82140; 83605; 83690; 83735; 83880; 84443; 85025; 85379; 87426; 87804; G0378; J1815; J2405; J2470

== ENCOUNTER 2024-08-17 06:12 | Emergency (ER) | payer MEDICAID ==
[~2024-08-17] VITALS: Ht 175.3 cm; Wt 118.2 kg
[~2024-08-17 06:12] MED LIST changes: +AMOX500C2 PO; +ZOFR4T PO
--- NOTE | 2024-08-17 06:43 | ED.PDOC ---
History of Present Illness HPI Comments 31-year-old male brought in by [facility] with prior MHx of DM, high lipids, hypertension, thyroid; surgical history of appendectomy hand the chief complaint of nausea/diarrhea. EMS report that the patient informed them the he had checked his blood sugar last night 11:00 p.m. do from him feeling dizzy, and the blood sugar being 353. Later that night the patient informed that he took his diabetic medication x2 and went to bed. That is morning the patient woke group not feeling any better and called EMS, EMS on scene BS of 322 from the patient. EMS no on the patient stating that he is compliant with only is diabetic medication. Patient notes that his pressure has been very high and very low for the last couple of weeks. Denies chills, fever, /V, SOB, CP. No other associated symptoms, modifiers, recent injuries or sick contacts present at this time. Time Seen by MD: 06:30 Primary Care Provider: Rodger Reviewed Notes: Nurses Notes, Welder Tech Notes, Medications, Allergies Allergies: Coded Allergies: No Known Drug Allergy (Unverified Allergy, Unknown, 08/29/23) Home Meds Active Scripts Ondansetron Odt 4MG Tab (ZOFRAN PO) 4 Mg Tb, 4 MG PO Q6HP PRN for 6 Days, #24 TAB ODT TAB-DISSOLVE IN MOUTH, THEN SWALLOW Prov:TIMOTEO RIZZO RESIDENT 05/23/24 Amoxicillin Trihydrate (Amoxicillin) 500 Mg Cap, 1 CAP PO TID for 7 Days, #21 CAP Prov:KT TRAVIS MD 05/22/24 Metformin Hydrochloride (Metformin Hcl) 500 Mg Tab, 1 TAB PO BID, #60 TAB 3 Refills Prov:BENITEZ SHORE RESIDENT 05/01/24 Insulin Glargine (Lantus) 100 Unit/Ml Inj, 30 UNIT SC DAILY for 30 Days, #1 INJ Prov:BENITEZ SHORE RESIDENT 05/01/24 Blood Glucose Monitoring Suppl (Blood Glucose Monitoring W/Device) 1 Kit Kit, KIT XX DAILY, #1 Prov:HEMAL SHANNON MD 05/01/24 Atorvastatin Calcium (ATORVASTATIN CALCIUM) 20 Mg Tab, 1 TAB PO DAILY, #90 TAB 1 Refill Prov:KAIN CHRISTIANSON MD 11/29/17 Reported Medications Metformin Hydrochloride (Metformin Hcl) 1,000 Mg Tab, 1 TAB PO DAILY, #60 TAB 5 Refills 04/29/24 Information Source: Patient, Emergency Med Personnel Mode of Arrival: EMS Severity: Moderate Timing: Hours Duration: Since onset, Hours Prehospital treatment: None Past Medical History PAST MEDICAL HISTORY: DM, High Lipids, HTN, Thyroid Surgical History: Appendectomy Family History Family History: Reviewed,noncontributory to illness, Unknown Social History Smoker: Unknown Alcohol: Unknown Drugs: Unknown Lives In: Homeless Constitutional: denies: chills, diaphoresis, fatigue, fever, malaise, sweats, weakness, others EENTM: denies: blurred vision, double vision, ear bleeding, ear discharge, ear drainage, ear pain, ear ringing, eye pain, eye redness, hearing loss, mouth pain, mouth swelling, nasal discharge, nose bleeding, nose congestion, nose pain, photophobia, tearing, throat pain, throat swelling, voice changes, others Respiratory: denies: cough, hemoptysis, orthopnea, SOB at rest, shortness of breath, SOB with excertion, stridor, wheezing, others Cardiovascular: denies: chest pain, dizzy spells, diaphoresis, Dyspnea on exertion, edema, irregular heart beat, left arm pain, lightheadedness, palpitations, PND, syncope, others Gastrointestinal: reports: diarrhea, nausea; denies: abdomen distended, abdominal pain, blood streaked bowels, constipated, dysphagia, difficulty swallowing, hematemesis, melena, poor appetite, poor fluid intake, rectal bleeding, rectal pain, vomiting, others Genitourinary: denies: burning, dysuria, flank pain, frequency, hematuria, incontinence, penile discharge, penile sore, pain, testicle pain, testicle swelling, urgency, others Neurological: reports: dizziness; denies: fainting, headache, left sided numbness, left sided weakness, numbness, paresthesia, pre-existing deficit, right sided numbness, right sided weakness, seizure, speech problems, tingling, tremors, weakness, others Musculoskeletal: denies: back pain, gout, joint pain, joint swelling, muscle pain, muscle stiffness, neck pain, others Integumetry: denies: bruises, change in color, change in hair/nails, dryness, laceration, lesions, lumps, rash, wounds, others Allergic/Immunocompromised: denies: Difficulty Healing, Frequent Infections, Hives, Itching, others Hematologic/Lymphatic: denies: anemia, blood clots, easy bleeding, easy bruising, swollen glands, others Endocrine: denies: excessive hunger, excessive sweating, excessive thirst, excessive urination, flushing, intolerance to cold, intolerance to heat, unexplained weight gain, unexplained weight loss, others Psychiatric: denies: anxiety, bipolar disorder, depression, hopeless, panic disorder, schizophrenia, sleepless, suicidal, others All Other Systems: Reviewed and Negative Physical Exam General Appearance: No Apparent Distress, Normal HEENT: Normal ENT Inspection, Pharynx Normal, TMs Normal Neck: Full Range of Motion, Non-Tender, Normal, Normal Inspection Respiratory: Chest Non-Tender, Lungs Clear, No Accessory Muscle Use, No Respiratory Distress, Normal Breath Sounds Cardiovascular: No Edema, No JVD, No Murmur, No Gallop, Normal Peripheral Pulses, Regular Rate/Rhythm Breast Exam: Deferred Gastrointestinal: No Organomegaly, Non Tender, No Pulsatile Mass, Normal Bowel Sounds, Soft Genitalia: Deferred Pelvic: Deferred Rectal: Deferred Extremities: No calf tenderness, Normal capillary refill, Normal inspection, Normal range of motion, Non-tender, No pedal edema Musculoskeletal : Apperance: Normal Neurologic: Alert, nutrition specialist II-XII nml as Tested, No Motor Deficits, Normal Affect, Normal Mood, No Sensory Deficits Cerebellar Function: Normal Reflexes: Normal Skin: Dry, Normal Color, Warm Lymphatic: No Adenopathy Was a procedure done? Was a procedure done?: No Differential Dx Considerations may include: Uncontrolled diabetes, hyperglycemia,, dehydration X-Ray, Labs, Meds, VS Vital Signs Date Time Temp Pulse Resp B/P (MAP) Pulse Ox O2 Delivery O2 Flow Rate FiO2 08/17/24 09:17 98.1 08/17/24 07:44 97.9 95 18 119/73 (88) 95 97.9 08/17/24 07:44 95 18 95 Room Air 08/17/24 06:15 98.8 96 16 125/77 (93) 95 98.8 Lab Test 08/17/24 08:29 08/17/24 06:53 Range/Units Urine Color Light-yellow Yellow Urine Clarity Clear Clear Urine pH 5.0 5.0-9.0 Urine Specific Gardner 1.039 H 1.001-1.035 Urine Protein Negative Negative Urine Ketones Trace Negative Urine Blood Negative Negative /uL Urine Nitrite Negative Negative Urine Bilirubin Negative Negative Urine Urobilinogen Normal Negative mg/dL Urine Leukocyte Esterase Negative Negative /uL Urine RBC <1 0 - 3 /hpf Urine Microscopic WBC < 1 0-3 /HPF Urine Squamous Epithelial Cells Few <5 /hpf Urine Bacteria None seen None Seen /hpf Urine Glucose 4+ H Normal mg/dL White Blood Count 8.3 4.4-10.8 10^3/uL Red Blood Count 5.01 4.5-5.90 10^6/uL Hemoglobin 15.9 13.5-17.5 g/dL Hematocrit 45.9 41.0-53.0 % Mean Corpuscular Volume 91.6 80.0-100.0 fL Mean Corpuscular Hemoglobin 31.6 28.0-32.0 pg Mean Corpuscular Hemoglobin Concent 34.5 32.0-36.0 g/dL Red Cell Distribution Width 13.3 11.8-14.3 % Platelet Count 266 140-450 10^3/uL Mean Platelet Volume 7.5 6.9-10.8 fL Neutrophils (%) (Auto) 56.4 37.0-80.0 % Lymphocytes (%) (Auto) 33.7 10.0-50.0 % Monocytes (%) (Auto) 8.5 0.0-12.0 % Eosinophils (%) (Auto) 0.8 0.0-7.0 % Basophils (%) (Auto) 0.6 0.0-2.0 % Neutrophils # (Auto) 4.7 1.6-8.6 10 ^3/uL Lymphocytes # (Auto) 2.8 0.4-5.4 10 ^3/uL Monocytes # (Auto) 0.7 0-1.3 10 ^3/uL Eosinophils # (Auto) 0.1 0-0.8 10 ^3/uL Basophils # (Auto) 0.1 0-0.2 10 ^3/uL Nucleated Red Blood Cells 0.1 % Sodium Level 137 136-145 mmol/L Potassium Level 4.5 3.5-5.1 mmol/L Chloride Level 100 98-107 mmol/L Carbon Dioxide Level 27 20-31 mmol/L Anion Gap 10 5-15 Blood Urea Nitrogen 12 9-23 mg/dL Creatinine 0.89 0.700-1.30 mg/dL Glomerular Filtration Rate Calc 112 >90 mL/min BUN/Creatinine Ratio 13.5 10.0-20.0 Serum Glucose 336 H 74-106 mg/dL Calcium Level 9.7 8.7-10.4 mg/dL Current Medications Medications (Trade) Dose Ordered Sig/Abhishek Route Start Time Stop Time Status Last Admin Sodium Chloride 1,000 ml @ 1,000 mls/hr Q1H ONCE IV 08/17/24 06:45 08/17/24 07:44 DC 08/17/24 07:54 Ondansetron HCl (Zofran) 4 mg ONCE ONCE IV 08/17/24 06:45 08/17/24 06:46 DC 08/17/24 07:53 [place] [id number] Ph: [phone] DIAGNOSTIC IMAGING Diagnostic Imaging Report : [id number] Signed PATIENT: SAUL RODRIGUEZ ACCT: [id number] UNIT: [id number] : 1985 LOC: ER ROOM / BED: / AGE / SEX: 39 / M ADM STATUS: REG ER SERVICE [id number] ORDERING PHYSICIAN: TINA SHORE MD PROCEDURE(s): CXRP - CHEST PORTABLE REASON: weakness ORDER NUMBER(s): [id number], ACCESSION NUMBER(s): [id number] EXAM: XR Chest, 1 View CLINICAL INDICATION: weakness TECHNIQUE: Frontal view of the chest. COMPARISON: XY CHEST XRAY 1 VIEW on DOS: 04/28/24, CXRP on DOS: 10/31/21, CHEST PORTABLE on DOS: 10/31/21 FINDINGS: LUNGS AND PLEURAL SPACES: Unremarkable. No consolidation. No pneumothorax. HEART: Unremarkable. No cardiomegaly. MEDIASTINUM: Unremarkable. Normal mediastinal contour. BONES/JOINTS: Unremarkable. No acute fracture. OTHER FINDINGS: . IMPRESSION: No acute cardiopulmonary process. Time of 1ST Reevaluation: 07:00 Reevaluation 1ST: Unchanged Patient Education/Counseling: Diagnosis, Treatment, Prognosis Family Education/Counseling: No Family Present Departure 1 Departure Time of Disposition: 09:27 (Patient is feeling better and tolerating p.o.. We will discharge patient home with outpatient follow up) Impression: Primary Impression: Hyperglycemia Additional Impression: Nausea Disposition: 01 HOME / SELF CARE / HOMELESS Condition: Stable Additional Instructions: Your workup today was benign. You can take Tylenol or Motrin as needed for pain. You should follow up with your regular doctor within 1 week. You should stay well rested and well hydrated. If your symptoms worsen or you have any other concerns please return to the emergency room. Discharged With: Self Critical Care Note Critical Care Time?: No Stability Stability form required: No I personally scribed for TINA SHORE MD ([email or web address]) on 08/17/24 at 06:43. Electronically submitted by Travon Quiroga ([email or web address]). I personally scribed for TINA SHORE MD ([email or web address]) on 08/17/24 at 07:50. Electronically submitted by Travon Quiroga ([email or web address]). TINA SHORE MD August 17, 2024 06:43
[2024-08-17 07:07] LABS: Basophils # (auto) 0.1 10 ^3/uL (0-0.2); Basophils % (auto) 0.6 % (0.0-2.0); Eosinophils # (auto) 0.1 10 ^3/uL (0-0.8); Eosinophils % (auto) 0.8 % (0.0-7.0); Hematocrit 45.9 % (41.0-53.0); Hemoglobin 15.9 g/dL (13.5-17.5); Lymphocytes # (auto) 2.8 10 ^3/uL (0.4-5.4); Lymphocytes % (auto) 33.7 % (10.0-50.0); Mean Corpuscular Hemoglobin 31.6 pg (28.0-32.0); Mean Corpuscular Hgb Conc. 34.5 g/dL (32.0-36.0); Mean Corpuscular Volume 91.6 fL (80.0-100.0); Monocytes # (auto) 0.7 10 ^3/uL (0-1.3); Monocytes % (auto) 8.5 % (0.0-12.0); Neutrophils # (auto) 4.7 10 ^3/uL (1.6-8.6); Neutrophils % (auto) 56.4 % (37.0-80.0); Nucleated Red Blood Cells % 0.1 %; Platelet Count (auto) 266 10^3/uL (140-450); Red Blood Cells 5.01 10^6/uL (4.5-5.90); Red Cell Distribution Width 13.3 % (11.8-14.3); White Blood Cell 8.3 10^3/uL (4.4-10.8)
[2024-08-17 07:22] LABS: Chloride 100 mmol/L (98-107); Potassium 4.5 mmol/L (3.5-5.1); Sodium 137 mmol/L (136-145)
[2024-08-17 07:23] LABS: Anion Gap 10 (5-15); Carbon Dioxide 27 mmol/L (20-31)
[2024-08-17 07:24] LABS: Calcium 9.7 mg/dL (8.7-10.4)
--- NOTE | 2024-08-17 07:26 | DVH ---
EXAM: XR Chest, 1 View CLINICAL INDICATION: weakness TECHNIQUE: Frontal view of the chest. COMPARISON: XY CHEST XRAY 1 VIEW on DOS: 04/28/24, CXRP on DOS: 10/31/21, CHEST PORTABLE on DOS: 10/31 FINDINGS: LUNGS AND PLEURAL SPACES: Unremarkable. No consolidation. No pneumothorax. HEART: Unremarkable. No cardiomegaly. MEDIASTINUM: Unremarkable. Normal mediastinal contour. BONES/JOINTS: Unremarkable. No acute fracture. OTHER FINDINGS: . IMPRESSION: No acute cardiopulmonary process.
[2024-08-17 07:29] LABS: BUN/Creatinine Ratio 13.5 (10.0-20.0); Blood Urea Nitrogen 12 mg/dL (9-23)
[2024-08-17 07:30] LABS: Glucose 336 mg/dL (74-106)
[2024-08-17] MEDS: ONDANSETRON HCL 4 MG/2 ML VIAL IV ONE (07:53)
[2024-08-17] MEDS: SODIUM CHLORIDE 0.9% 1,000 ML IV ONE (07:54)
[2024-08-17 08:42] LABS: Urine Bacteria None Seen /hpf (None Seen)
[2024-08-17 08:53] LABS: Urine Blood Negative /uL (Negative); Urine Clarity Clear (Clear); Urine Color Light-Yellow (Yellow); Urine Protein, UAD Negative (Negative); Urine Specific Gravity 1.039 (1.001-1.035); Urine Squamous Epithelial Cell FEW /hpf (<5); Urine Urobilinogen Normal (Negative); Urine WBC < 1 /HPF (0-3)
[2024-08-17] MEDS: ACETAMINOPHEN 325 MG TAB PO ONE (09:17)
[2024-08-17 09:47] VITALS: BP 158/96; PULSE 93; RESP 16; TEMP 98.3; O2SAT 96
== END 2024-08-17 09:48 | disposition home or self-care (01) ==
LOC: ER 06:12 → EDBD 06:12 → ER 09:48
DX: E11.65 Type 2 diabetes mellitus with hyperglycemia (principal); R11.0 Nausea; I10 Essential (primary) hypertension; E78.5 Hyperlipidemia, unspecified; Z90.49 Acquired absence of other specified parts of digestive tract; Z59.00 Homelessness unspecified; Z79.4 Long term (current) use of insulin; Z79.84 Long term (current) use of oral hypoglycemic drugs; Z79.899 Other long term (current) drug therapy
CPT/HCPCS: 36415; 71045; 80048; 81001; 82947; 85025; 96361; 96374; 99284; J2405; J7030; 82962

== ENCOUNTER 2024-11-17 17:01 | Emergency (ER) | payer MEDICAID ==
[~2024-11-17] VITALS: Ht 170.2 cm; Wt 118.8 kg
--- NOTE | 2024-11-17 17:25 | ED.PDOC ---
History of present illness HPI Comments HPI: Poor Historian. 39-year-old male brought in by ambulance for evaluation of hyperglycemia. Patient states his sugar has been high the last few months. He takes metformin and Lantus occasionally but states noncompliance with his medications. He also has history of hypertension but does not take any medicine for it either. Patient decided to come today so he can start taking care of his health. Past Medical History: Schizophrenia, bipolar, diabetes, hypertension, medication noncompliance Past Surgical History: Appendectomy Denies any recent use of drugs or alcohol. REVIEW OF SYSTEMS: CONSTITUTIONAL: Denies acute: fever, diaphoresis, chills, HEAD: Denies acute: headache, photophobia Eyes: Denies acute: Double vision, vision loss, eye pain, eye discharge. EARS: Denies acute: tinnitus, hearing loss, ear discharge, ear pain, THROAT: Denies acute: sore throat, swelling, difficulty swallowing , pain with swallowing, change in voice. NECK: Denies acute: neck pain, neck swelling, stiff neck. HEART: Denies acute : chest pain, palpitations, LUNGS: Denies acute: SOB, wheezing, cough, hemoptysis ABDOMEN: Denies acute: abdominal pain, Nausea, Vomiting, diarrhea, melena , hematemesis, hematochezia SKIN: Denies acute: rash, redness, lesions, itchiness. EXTREMITIES: Denies acute: calf pain, numbness, tingling, weakness, denies pain in extremity. Denies acute: Low back pain. Neuro: Denies acute: focal neurological deficit, motor or sensory focal neurological deficit, tremors, seizure like activity, confusion, dizziness, change in mental status, loss of bowel or bladder function, cauda equina like symptoms. : Denies acute: dysuria, hematuria, flank pain, PSYCH: Denies acute: hallucination, suicidal ideation, homicidal ideation. PHYSICAL EXAM: General: -----no---acute distress, awake and alert. Head: normocephalic, atraumatic. Neck: supple, trachea is midline, no swelling. Throat: Normal phonation. Eyes:, no erythema, no purulent discharge, no proptosis, no icterus. Heart: regular rate, regular rhythm, no significant murmur appreciated. Lungs: no apparent respiratory distress, Able to speak in full sentences. No wheezing, no rhonchi, no crackles. No stridors Clear to auscultation bilaterally. Abdomen: non tender to palpation, non distended, soft, no guarding, no rebound, + bowel sounds. Obese Neuro: Awake, Alert, oriented to name, self, situation, follows commands GCS=15. Speech is normal. Skin: no petechia, no purpura, no cyanosis, non-pale, not jaundice. Lower extremities: --no - Pitting edema no deformity, no focal swelling, no calf TTP. Makes eye contact. moves all four extremities. Face: no apparent facial droop. ED COURSE: DISCLAIMER: This medical document was created using an electronic medical record system with voice recognition software and computerized dictation system. Although this document has been carefully reviewed, there might still be some phonetic and typographical errors. Occasional wrong-word or "sound-alike" substitutions may have occurred due to the inherent limitations of voice recognition software. These areas are purely typographical due to imperfections of the software programs and do not reflect any compromise in the patient's medical care. Please read the chart carefully and recognize, using context, where these substitutions have occurred. Time Seen by MD: 17:09 Primary Care Provider: Rodger Allergies: Coded Allergies: No Known Drug Allergy (Unverified Allergy, Unknown, 08/29/23) Home Meds Active Scripts Ondansetron Odt 4MG Tab (ZOFRAN PO) 4 Mg Tb, 4 MG PO Q6HP PRN for 6 Days, #24 TAB ODT TAB-DISSOLVE IN MOUTH, THEN SWALLOW Prov:TIMOTEO RIZZO RESIDENT 05/23/24 Amoxicillin Trihydrate (Amoxicillin) 500 Mg Cap, 1 CAP PO TID for 7 Days, #21 CAP Prov:KT TRAVIS MD 05/22/24 Metformin Hydrochloride (Metformin Hcl) 500 Mg Tab, 1 TAB PO BID, #60 TAB 3 Refills Prov:BENITEZ SHORE RESIDENT 05/01/24 Insulin Glargine (Lantus) 100 Unit/Ml Inj, 30 UNIT SC DAILY for 30 Days, #1 INJ Prov:BENITEZ SHORE RESIDENT 05/01/24 Blood Glucose Monitoring Suppl (Blood Glucose Monitoring W/Device) 1 Kit Kit, KI T XX DAILY, #1 Prov:HEMAL SHANNON MD 05/01/24 Atorvastatin Calcium (ATORVASTATIN CALCIUM) 20 Mg Tab, 1 TAB PO DAILY, #90 TAB 1 Refill Prov:KAIN CHRISTIANSON MD 11/29/17 Reported Medications Metformin Hydrochloride (Metformin Hcl) 1,000 Mg Tab, 1 TAB PO DAILY, #60 TAB 5 Refills 04/29/24 Information Source: Patient Past Medical History PAST MEDICAL HISTORY: DM, High Lipids, HTN, Thyroid Surgical History: Appendectomy Family History Family History: Reviewed,noncontributory to illness, Unknown Social History Smoker: Unknown Alcohol: Unknown Drugs: Unknown Lives In: Homeless Was a procedure done? Was a procedure done?: No Differential Diagnosis (DM) Differential Diagnosis: Dehydration, Diabetic Coma, DKA, Electrolyte Abnormality, Hyperglycemia, Hyperosmolar State, Pyelonephritis, UTI X-Ray, Labs, Meds, VS Vital Signs Date Time Temp Pulse Resp B/P (MAP) Pulse Ox O2 Delivery O2 Flow Rate FiO2 11/17/24 17:04 98.4 117 24 114/76 99 98.4 11/17/24 17:02 102 Current Medications Medications (Trade) Dose Ordered Sig/Abhishek Route Start Time Stop Time Status Last Admin Sodium Chloride 1,000 ml @ 1,000 mls/hr Q1H ONCE IV 11/17/24 17:15 11/17/24 18:14 DC 11/17/24 17:29 Sodium Chloride 1,000 ml @ 1,000 mls/hr Q1H ONCE IV 11/17/24 17:15 11/17/24 18:14 DC 11/17/24 17:30 Time of 1ST Reevaluation: 18:27 Reevaluation 1ST: Improved Patient Education/Counseling: Diagnosis, Treatment Family Education/Counseling: Other Assigned to Dr. dr. Jacobs Comments MDM: patient presented with the above HPI.---hyperglycemia in diabetes with medication noncompliance--workup was initiated. patient was found with the above mentioned diagnosis. the following medications were ordered: please refer to order lists of meds and tests obtained by myself Dr. Lambert. Patient ED course and VS have been stabilized. Patient has been reassessed in the ED and remained in a stable condition. Pertinent incidental findings were discussed with the patient and/or family. Patient/family voices understanding and is agreeable with plan. Patient has been observed in the ED adequate length of time to insure improvement/stability. Escalation of care considered: Consideration of escalation to observation or admission 2 L normal saline bolus were ordered. The care of this patient was signed out to my colleague Dr. Jacobs. Still awaiting all lab results. I anticipate that the patient will be discharged home. All the reports of any imaging studies that were ordered by myself were reviewed by myself. SEPSIS Sepsis Screen Physician Orders Wheel Borer (11/17/24 ) Complete Blood Count (11/17/24 17:09) Comprehensive Metabolic Panel (11/17/24 17:09) Lactic Acid W/ Reflex Order (11/17/24 17:09) Urinalysis (11/17/24 17:09) Electrocardigram (11/17/24 17:09) Vital Signs Date Time Temp Pulse Resp B/P (MAP) Pulse Ox O2 Delivery O2 Flow Rate FiO2 11/17/24 17:04 98.4 117 24 114/76 99 98.4 11/17/24 17:02 102 Medications Medications Dose Ordered Sig/Abhishek Route Start Time Stop Time Status Last Admin Dose Admin Sodium Chloride 1,000 ml @ 1,000 mls/hr Q1H ONCE IV 11/17/24 17:15 11/17/24 18:14 DC 11/17/24 17:29 Sodium Chloride 1,000 ml @ 1,000 mls/hr Q1H ONCE IV 11/17/24 17:15 11/17/24 18:14 DC 11/17/24 17:30 Departure 1 Departure Time of Disposition: 17:25 Impression: Primary Impression: Hyperglycemia due to diabetes mellitus Additional Impression: Noncompliance with medications Disposition: 30 STILL A PATIENT Condition: Stable Discharged With: Self Critical Care Note Critical Care Time?: No Heart Score Heart Score: Heart Score Response (Comments) Value History N/A 0 EKG N/A 0 Age N/A 0 Risk Factors N/A 0 Troponin N/A 0 Total 0 JAI LAMBERT DO Nov 17, 2024 17:25
[2024-11-17] MEDS: SODIUM CHLORIDE 0.9% 1,000 ML IV ONE ×2 (17:29→17:30)
[2024-11-17 18:56] LABS: Hematocrit 46.4 % (41.0-53.0); Hemoglobin 16.2 g/dL (13.5-17.5); Mean Corpuscular Hemoglobin 32.4 pg (28.0-32.0); Mean Corpuscular Volume 92.9 fL (80.0-100.0); Nucleated Red Blood Cells % 0.1 %
[2024-11-17 19:11] LABS: Albumin 4.2 g/dL (3.2-4.8); Alkaline Phosphatase 71 U/L (46-116); Anion Gap 9 (5-15); BUN/Creatinine Ratio 13.0 (10.0-20.0); Blood Urea Nitrogen 12 mg/dL (9-23); Carbon Dioxide 22 mmol/L (20-31); Potassium 4.4 mmol/L (3.5-5.1); Sodium 138 mmol/L (136-145); Total Protein 6.3 g/dL (5.7-8.2)
[2024-11-17 19:12] LABS: Alanine Aminotransferase 71 U/L (7-40); Bilirubin, Total 0.3 mg/dL (0.2-1.0); Calcium 8.4 mg/dL (8.7-10.4); Chloride 107 mmol/L (98-107); Glucose 347 mg/dL (74-106)
[2024-11-17 19:13] LABS: Lactic Acid w/Reflex 2.1 mmol/L (0.4-2.0)
--- NOTE | 2024-11-17 19:45 | ECG ---
[facility] Test Date: 2024-11-17 Test Time: 17:02:38 Pat Name: SAUL RODRIGUEZ Department: ED Room: Gender: M Fixer Boarding Room: [place]INDA : 1985 Requested By: JAI LAMBERT Order Number: [id number] Reading MD: Levy Cody Measurements Intervals [place] Rate: 102 P: 27 FL: 158 QRS: 68 QRSD: 88 T: -2 QT: 335 QTc: 437 Interpretive Statements Sinus tachycardia Anterior infarct, old Minimal ST elevation, lateral leads Electronically Signed On 11-20-2024 22:51:25 PDT by Levy Cody Please click the below link to view image of tracing.
[2024-11-17 20:41] VITALS: BP 124/75; PULSE 100; RESP 20; TEMP 98.1; O2SAT 95
[2024-11-17 21:25] LABS: Urine Protein, UAD Negative (Negative)
== END 2024-11-17 22:08 | disposition home or self-care (01) ==
LOC: EDBD 17:01 → ER 17:04
DX: E11.65 Type 2 diabetes mellitus with hyperglycemia (principal); E78.5 Hyperlipidemia, unspecified; I10 Essential (primary) hypertension; F20.9 Schizophrenia, unspecified; Z59.00 Homelessness unspecified; Z79.4 Long term (current) use of insulin; Z79.84 Long term (current) use of oral hypoglycemic drugs; Z79.899 Other long term (current) drug therapy; Z90.49 Acquired absence of other specified parts of digestive tract; Z91.148 Patient's other noncompliance with medication regimen for other reason
CPT/HCPCS: 36415; 80053; 81001; 82947; 83605; 85025; 93005